=== PATIENT | female | born 1965 | race Caucasian/White ===

== ENCOUNTER 2017-05-24 12:58 | Emergency (ER) | payer BC ==
[~2017-05-24] VITALS: Ht 175.3 cm; Wt 110.8 kg
[~2017-05-24 12:58] MED LIST: DAILY VITE1 EAC1 PO; FENOFIBRATE160 M1 PO; LOSARTAN-HCTZ1 EAC2 PO; LOSARTAN-HCTZ1 EACH PO; LOVENOX40 MG/0.4 SC; METFORMIN HCL500 MG PO
[2017-05-24 14:37] LABS: HEMATOCRIT 36.5 % (36.0-46.0); MCHC 34.8 G/DL (30.0-36.0); MEAN PLAT.VOLUME 10.4 uM^3 (9.5-12.4); PLATELET COUNT 185 K/uL (156-360); RBC DIS.WIDTH-CV 13.2 % (11.8-14.6); RBC DIS.WIDTH-SD 43.4 % (39-53); WHITE BLOOD COUNT 5.7 K/uL (4.1-10.2)
[2017-05-24 14:46] LABS: CHLORIDE 103 mEq/L (99-109); POTASSIUM 3.1 mEq/L (3.7-5.4); SODIUM 138 mEq/L (136-147)
[2017-05-24 14:49] LABS: GLUCOSE 128 mg/dL (70-99)
[2017-05-24 14:50] LABS: ANION GAP 14 MEQ/L (2-14); TOTAL BILIRUBIN 0.4 mg/dL (0.0-1.0)
[2017-05-24 14:52] LABS: ALKALINE PHOSPHATASE 61 IU/L (3-129); GFR ESTIMATE (CALCULATED) 55 mL/min/
[2017-05-24 14:53] LABS: UREA NITROGEN (BUN) 22 mg/dL (9-23)
[2017-05-24 14:54] LABS: DIRECT BILIRUBIN 0.2 mg/dL (0.0-0.3)
[2017-05-24 14:56] LABS: LIPASE 11 U/L (1.0-51.0)
[2017-05-24 17:17] LABS: ADD MIUA? YES; BILIRUBIN NEGATIVE; BLOOD NEGATIVE; COLOR YELLOW ((YELLOW)); GLUCOSE (STRIP) NEGATIVE; KETONES NEGATIVE; LEUKOCYTES NEGATIVE; NITRITE NEGATIVE; PROTEIN (STRIP) 30; UROBILINOGEN 0.2 MG/DL (0.2-1.0)
[2017-05-24 17:23] LABS: BACTERIA 2+ /HPF; EPITHELIAL CELLS RARE /HPF; HYALINE CASTS 20-30 /LPF; MUCUS TRACE /LPF; RED BLOOD CELLS 0-5 /HPF (0-5); UCUL ADDED? YES; WHITE BLOOD CELLS 0-5 /HPF (0-5)
[2017-05-24 17:53] VITALS: BP 113/84
== END 2017-05-24 17:53 | disposition home or self-care (01) ==
LOC: EME 12:58
PROVIDERS: Emergency Medicine
DX: E86.0 Dehydration (principal); R19.7 Diarrhea, unspecified; I10 Essential (primary) hypertension; E78.5 Hyperlipidemia, unspecified; E11.9 Type 2 diabetes mellitus without complications; Z79.84 Long term (current) use of oral hypoglycemic drugs
CPT/HCPCS: 74176; 80048; 80076; 81003; 83690; 85027; 87086; 93005; 99281; 99284; J2405; J7030

== ENCOUNTER 2017-06-10 08:31 | Emergency (ER) | payer BC ==
[~2017-06-10] VITALS: Ht 172.7 cm; Wt 109.2 kg
[2017-06-10 09:15] LABS: ADD MIUA? YES; BILIRUBIN SMALL; BLOOD NEGATIVE; COLOR AMBER ((YELLOW)); GLUCOSE (STRIP) NEGATIVE; KETONES 5; LEUKOCYTES NEGATIVE; NITRITE NEGATIVE; PROTEIN (STRIP) 100; SPECIFIC GRAVITY 1.042 (1.000-1.030)
[2017-06-10 09:20] LABS: BACTERIA 3+ /HPF; CALCIUM OXALATE CRYSTALS 3+ /HPF; EPITHELIAL CELLS 3+ /HPF; GRANULAR CASTS 0-5 /LPF; HYALINE CASTS 0-5 /LPF; MUCUS 2+ /LPF; RED BLOOD CELLS 0-5 /HPF (0-5); WHITE BLOOD CELLS 0-5 /HPF (0-5)
[2017-06-10 09:47] LABS: HEMATOCRIT 33.9 % (36.0-46.0); MCH 30.7 PG (29.0-34.0); MCHC 33.9 G/DL (30.0-36.0); MCV 90.6 FL (83-99); MEAN PLAT.VOLUME 9.6 uM^3 (9.5-12.4); PLATELET COUNT 178 K/uL (156-360); RBC DIS.WIDTH-CV 13.7 % (11.8-14.6); RBC DIS.WIDTH-SD 45.4 % (39-53); RED BLOOD COUNT 3.74 M/uL (3.80-5.20); WHITE BLOOD COUNT 5.7 K/uL (4.1-10.2)
[2017-06-10 10:01] LABS: CHLORIDE 109 mEq/L (99-109); POTASSIUM 3.5 mEq/L (3.7-5.4); SODIUM 141 mEq/L (136-147)
[2017-06-10 10:03] LABS: GLUCOSE 153 mg/dL (70-99)
[2017-06-10 10:05] LABS: ANION GAP 10 MEQ/L (2-14); TOTAL BILIRUBIN 0.6 mg/dL (0.0-1.0)
[2017-06-10 10:07] LABS: ALKALINE PHOSPHATASE 52 IU/L (3-129); GFR ESTIMATE (CALCULATED) > 59 mL/min/
[2017-06-10 10:08] LABS: UREA NITROGEN (BUN) 17 mg/dL (9-23)
[2017-06-10 10:10] LABS: LIPASE 11 U/L (1.0-51.0)
[2017-06-10] MEDS ORDERED: PREDNISONE50 MG PO (10:38)
[2017-06-10 10:45] VITALS: BP 150/70
== END 2017-06-10 10:47 | disposition home or self-care (01) ==
LOC: EME 08:31
PROVIDERS: Nurse Practitioner Family
DX: R22.0 Localized swelling, mass and lump, head (principal); R10.9 Unspecified abdominal pain; N04.9 Nephrotic syndrome with unspecified morphologic changes
CPT/HCPCS: 71020; 80053; 81003; 83690; 83880; 85027; 99281; 99284; J7512

== ENCOUNTER 2017-07-22 10:29 | Inpatient (IN) | payer BC ==
[~2017-07-22] VITALS: Ht 170.2 cm; Wt 111.3 kg
[~2017-07-22 10:29] MED LIST changes: +PREDNISONE50 MG PO
[2017-07-22 11:19] LABS: HEMATOCRIT 28.5 % (36.0-46.0); MCH 28.1 PG (29.0-34.0); MCHC 32.3 G/DL (30.0-36.0); MEAN PLAT.VOLUME 10.7 uM^3 (9.5-12.4); PLATELET COUNT 142 K/uL (156-360); RBC DIS.WIDTH-CV 14.6 % (11.8-14.6); RBC DIS.WIDTH-SD 46.8 % (39-53); RED BLOOD COUNT 3.27 M/uL (3.80-5.20); WHITE BLOOD COUNT 3.3 K/uL (4.1-10.2)
[2017-07-22 11:20] LABS: MCV 87.2 FL (83-99)
[2017-07-22 11:29] LABS: CHLORIDE 103 mEq/L (99-109); POTASSIUM 3.5 mEq/L (3.7-5.4); SODIUM 134 mEq/L (136-147)
[2017-07-22 11:30] LABS: GLUCOSE 131 mg/dL (70-99)
[2017-07-22 11:32] LABS: ANION GAP 14 MEQ/L (2-14)
[2017-07-22 11:34] LABS: GFR ESTIMATE (CALCULATED) 46 mL/min/
[2017-07-22 11:35] LABS: UREA NITROGEN (BUN) 34 mg/dL (9-23)
[2017-07-22 11:57] LABS: EOSINOPHIL (%) 2.1 % (0-5); EOSINOPHIL COUNT 0.1 K/uL (0-0.3); HEMATOLOGY COMMENT 1 SMEAR COMPATIBLE; IMMATURE GRANULOCYTE (%) 0.6 % (0.0-0.7); INSTRUMENT ABS NEUTROPHIL CT 2.5 K/uL; LYMPHOCYTE COUNT 0.5 K/uL (1.0-2.8); MONOCYTE COUNT 0.2 K/uL (0-0.8); NEUTROPHIL (%) 75.7 % (45-76); NEUTROPHIL COUNT 2.5 K/uL (1.8-6.4)
[2017-07-22] MEDS ORDERED: PREDNISONE10 MG PO (13:01)
[2017-07-22] MEDS ORDERED: ESTRACE1 MG PO (13:02)
[2017-07-22 13:41] LABS: ADD MIUA? YES; BILIRUBIN NEGATIVE; BLOOD NEGATIVE; COLOR YELLOW ((YELLOW)); GLUCOSE (STRIP) NEGATIVE; KETONES NEGATIVE; LEUKOCYTES NEGATIVE; NITRITE NEGATIVE; PROTEIN (STRIP) NEGATIVE; SPECIFIC GRAVITY 1.008 (1.000-1.030); UROBILINOGEN 0.2 MG/DL (0.2-1.0)
[2017-07-22 13:46] LABS: BACTERIA 3+ /HPF; EPITHELIAL CELLS 1+ /HPF; HYALINE CASTS 0-5 /LPF; MUCUS TRACE /LPF; RED BLOOD CELLS 0-5 /HPF (0-5); UCUL ADDED? YES; WHITE BLOOD CELLS 0-5 /HPF (0-5)
[2017-07-22 15:24] VITALS: BP 111/56
[2017-07-22 15:48] LABS: C-REACTIVE PROTEIN 144.4 MG/L (0-10)
[2017-07-22 15:59] LABS: ERTH.SED.RATE 64 MM/HR (0-30)
[2017-07-22 17:25] VITALS: BP 111/56
[2017-07-22 19:50] VITALS: BP 111/54
[2017-07-22 21:39] LABS: POINT-OF-CARE METER ID UU14174216
[2017-07-23] VITALS: BP 119/57
[2017-07-23 03:41] VITALS: BP 108/57
[2017-07-23 05:42] LABS: HEMATOCRIT 25.3 % (36.0-46.0); MCH 28.2 PG (29.0-34.0); MCHC 31.6 G/DL (30.0-36.0); MCV 89.1 FL (83-99); MEAN PLAT.VOLUME 10.7 uM^3 (9.5-12.4); PLATELET COUNT 137 K/uL (156-360); RBC DIS.WIDTH-CV 14.9 % (11.8-14.6); RBC DIS.WIDTH-SD 49.1 % (39-53); RED BLOOD COUNT 2.84 M/uL (3.80-5.20); WHITE BLOOD COUNT 2.9 K/uL (4.1-10.2)
[2017-07-23 06:14] LABS: ANION GAP 10 MEQ/L (2-14); CHLORIDE 110 MEQ/L (99-109); GLUCOSE 126 mg/dL (70-99); SAMPLE HEMOLYSIS CHECK 0; SAMPLE ICTERIC CHECK 0; SAMPLE LIPEMIA CHECK 0; UREA NITROGEN (BUN) 22 mg/dL (9-23)
[2017-07-23 06:19] LABS: GFR ESTIMATE (CALCULATED) > 59 mL/min/; SODIUM 141 MEQ/L (136-147)
[2017-07-23 07:30] VITALS: BP 108/57
[2017-07-23 11:54] VITALS: BP 106/58
[2017-07-23 16:00] VITALS: BP 100/57
[2017-07-23 19:38] VITALS: BP 121/65
[2017-07-23 21:29] LABS: POINT-OF-CARE METER ID UU14162508
[2017-07-24] VITALS (7 sets, daily range): BP systolic 110–131; BP diastolic 58–69
[2017-07-24 06:55] LABS: HEMATOCRIT 25.1 % (36.0-46.0); MCH 29.2 PG (29.0-34.0); MCHC 32.3 G/DL (30.0-36.0); MCV 90.6 FL (83-99); MEAN PLAT.VOLUME 11.2 uM^3 (9.5-12.4); PLATELET COUNT 140 K/uL (156-360); RBC DIS.WIDTH-CV 14.9 % (11.8-14.6); RED BLOOD COUNT 2.77 M/uL (3.80-5.20); WHITE BLOOD COUNT 2.7 K/uL (4.1-10.2)
[2017-07-24 07:19] LABS: ANION GAP 10 MEQ/L (2-14); CHLORIDE 110 MEQ/L (99-109); GFR ESTIMATE (CALCULATED) > 59 mL/min/; GLUCOSE 123 mg/dL (70-99); MAGNESIUM 1.7 mg/dl (1.3-2.7); POTASSIUM 4.1 MEQ/L (3.7-5.4); SAMPLE HEMOLYSIS CHECK 0; SAMPLE ICTERIC CHECK 0; SAMPLE LIPEMIA CHECK 0; SODIUM 142 MEQ/L (136-147); UREA NITROGEN (BUN) 20 mg/dL (9-23)
[2017-07-25 07:45] VITALS: BP 120/62
[2017-07-25 10:27] LABS: HEMATOCRIT 26.8 % (36.0-46.0); MCH 28.1 PG (29.0-34.0); MCHC 30.6 G/DL (30.0-36.0); MCV 91.8 FL (83-99); MEAN PLAT.VOLUME 11.6 uM^3 (9.5-12.4); PLATELET COUNT 146 K/uL (156-360); RBC DIS.WIDTH-CV 15.1 % (11.8-14.6); RED BLOOD COUNT 2.92 M/uL (3.80-5.20); WHITE BLOOD COUNT 2.5 K/uL (4.1-10.2)
[2017-07-25 10:39] LABS: ALKALINE PHOSPHATASE 46 IU/L (3-129); ANION GAP 9 MEQ/L (2-14); CHLORIDE 112 MEQ/L (99-109); GFR ESTIMATE (CALCULATED) > 59 mL/min/; GLUCOSE 117 mg/dL (70-99); POTASSIUM 3.9 MEQ/L (3.7-5.4); SODIUM 143 MEQ/L (136-147); UREA NITROGEN (BUN) 19 mg/dL (9-23)
[2017-07-25 10:41] LABS: TOTAL BILIRUBIN 0.4 MG/DL (0.0-1.0)
[2017-07-25 11:05] LABS: HEMATOCRIT 25.1 % (36.0-46.0); MCHC 31.9 G/DL (30.0-36.0); MCV 90.9 FL (83-99); MEAN PLAT.VOLUME 10.9 uM^3 (9.5-12.4); PLATELET COUNT 147 K/uL (156-360); RBC DIS.WIDTH-CV 15.2 % (11.8-14.6); RBC DIS.WIDTH-SD 50.5 % (39-53); RED BLOOD COUNT 2.76 M/uL (3.80-5.20); WHITE BLOOD COUNT 2.7 K/uL (4.1-10.2)
[2017-07-25 11:28] LABS: EOSINOPHIL (%) 0.4 % (0-5); IMMATURE GRANULOCYTE (%) 1.9 % (0.0-0.7); IMMATURE GRANULOCYTE COUNT 0.1 K/uL; INSTRUMENT ABS NEUTROPHIL CT 2.1 K/uL; LYMPHOCYTE COUNT 0.3 K/uL (1.0-2.8); MONOCYTE (%) 8.3 % (3-12); MONOCYTE COUNT 0.2 K/uL (0-0.8); NEUTROPHIL (%) 77.3 % (45-76); NEUTROPHIL COUNT 2.1 K/uL (1.8-6.4)
[2017-07-25 11:52] LABS: ALKALINE PHOSPHATASE 42 IU/L (3-129); DIRECT BILIRUBIN 0.1 mg/dL (0.0-0.3); GLOBULINS 3.2 G/DL (2.3-3.5); TOTAL BILIRUBIN 0.4 MG/DL (0.0-1.0)
[2017-07-25 12:17] LABS: LACTATE DEHYDROGENASE 271 IU/L (20-246); URIC ACID 6.9 mg/dL (3.1-9.2)
[2017-07-25 12:33] LABS: ANTI-CYCLC CITRULLINATED PEPT+ <16 Units (<20)
[2017-07-25 15:44] VITALS: BP 131/66
[2017-07-25 16:05] LABS: POINT-OF-CARE METER ID UU14314084
[2017-07-25 16:38] LABS: URINE TOTAL PROTEIN 6 MG/DL (0-10)
[2017-07-25 21:39] LABS: POINT-OF-CARE METER ID UU14314084
[2017-07-26 00:13] VITALS: BP 137/64
[2017-07-26 06:45] LABS: POINT-OF-CARE METER ID UU14208750
[2017-07-26 07:14] LABS: HEMATOCRIT 24.5 % (36.0-46.0); MCH 28.7 PG (29.0-34.0); MCHC 31.8 G/DL (30.0-36.0); MCV 90.1 FL (83-99); MEAN PLAT.VOLUME 11.7 uM^3 (9.5-12.4); NRBC (%) 1.7 /100 WBC (0-0); PLATELET COUNT 155 K/uL (156-360); RBC DIS.WIDTH-CV 15.3 % (11.8-14.6); RBC DIS.WIDTH-SD 50.1 % (39-53); RED BLOOD COUNT 2.72 M/uL (3.80-5.20); WHITE BLOOD COUNT 2.9 K/uL (4.1-10.2)
[2017-07-26 07:20] VITALS: BP 122/71
[2017-07-26 07:32] LABS: ALKALINE PHOSPHATASE 43 IU/L (3-129); ANION GAP 10 MEQ/L (2-14); CHLORIDE 111 MEQ/L (99-109); GFR ESTIMATE (CALCULATED) > 59 mL/min/; GLUCOSE 127 mg/dL (70-99); POTASSIUM 4.3 MEQ/L (3.7-5.4); SAMPLE HEMOLYSIS CHECK 0; SAMPLE ICTERIC CHECK 0; SAMPLE LIPEMIA CHECK 0; SODIUM 142 MEQ/L (136-147); TOTAL BILIRUBIN 0.4 MG/DL (0.0-1.0); UREA NITROGEN (BUN) 16 mg/dL (9-23)
[2017-07-26 07:44] LABS: ABS NEUTROPHIL COUNT 2.1; BAND NEUTROPHILS 3.7 % (0-8.0); BASOPHILS 0.9 %; EOSINOPHIL ABS CT 0; INSTRUMENT ABS NEUTROPHIL CT 1.9 K/uL; LYMPHOCYTES 15.6 % (15.0-45.0); MYELOCYTES 6.4 %; NUCLEATED RBC'S 0.9; PLAT.SUFFICIENCY DECREASED; SEG.NEUTROPHILS 69.7 % (46.0-76.0)
[2017-07-26 11:54] LABS: POINT-OF-CARE METER ID UU14208750; POINT-OF-CARE USER ID PUTDRM
[2017-07-26] MEDS ORDERED: PREDNISONE10 MG PO ×2 (15:37→15:47)
[2017-07-26] MEDS ORDERED: CALCIUM 500 MG1 EACH PO (15:46)
[2017-07-26 16:12] LABS: POINT-OF-CARE METER ID UU14314084
[2017-07-28 11:12] LABS: ALBUMIN 2.68 G/DL (3.6-4.9); ALBUMIN PERCENT 44.6 % (49.3-67.1); ALPHA-1 GLOBULIN 0.46 G/DL (0.15-0.40); ALPHA-1 PERCENT 7.7 % (2.1-5.5); ALPHA-2 GLOBULIN 0.76 G/DL (0.45-0.85); ALPHA-2 PERCENT 12.6 % (6.2-11.6); BETA PERCENT 11.6 % (8.9-15.8); GAMMA PERCENT 23.5 % (8.6-18.6)
== END 2017-07-26 16:49 | disposition home or self-care (01) | DRG 951 ==
LOC: EME 10:29 → EDOF 12:45 → 4EAST 12:45 → ENRESERV 12:45 → 4EAST 15:09 → ENRESERV 07-23 14:21 → 2EAST 07-23 15:50
PROVIDERS: Emergency Medicine; Hospitalist; Internal Medicine; Internal Medicine Medical Oncology
DX: Z03.89 Encounter for observation for other suspected diseases and conditions ruled out (principal); D61.818 Other pancytopenia; E87.2 Acidosis; I95.9 Hypotension, unspecified; R50.9 Fever, unspecified; R59.0 Localized enlarged lymph nodes; R21 Rash and other nonspecific skin eruption; I10 Essential (primary) hypertension; E78.2 Mixed hyperlipidemia; E11.9 Type 2 diabetes mellitus without complications; K76.9 Liver disease, unspecified; E66.9 Obesity, unspecified; Z68.38 Body mass index [BMI] 38.0-38.9, adult; Z79.890 Hormone replacement therapy; Z79.52 Long term (current) use of systemic steroids; Z92.21 Personal history of antineoplastic chemotherapy; Z87.59 Personal history of other complications of pregnancy, childbirth and the puerperium; Z90.710 Acquired absence of both cervix and uterus
CPT/HCPCS: 36415; 70491; 71010; 71260; 80048; 80053; 81003; 82085 90; 82248; 82550; 82948; 83036; 83605; 83615; 83735; 84165; 84166; 84550; 84702 90; 85025; 85027; 85651; 86038; 86140; 86200 90; 86215 90; 86235; 86430; 87040; 87086; 99281; 99285; J0295; J1650; J1815; J2543; J7030; J7050; J7512

== ENCOUNTER 2017-08-10 19:59 | Inpatient (IN) | payer BC ==
[~2017-08-10] VITALS: Ht 170.2 cm; Wt 105.4 kg
[~2017-08-10 19:59] MED LIST changes: +CALCIUM 500 MG1 EACH PO; +ESTRACE1 MG PO; +PREDNISONE10 MG PO
[2017-08-10 21:08] LABS: ADD MIUA? YES; BILIRUBIN NEGATIVE; BLOOD NEGATIVE; COLOR YELLOW ((YELLOW)); GLUCOSE (STRIP) NEGATIVE; KETONES NEGATIVE; LEUKOCYTES NEGATIVE; NITRITE NEGATIVE; PROTEIN (STRIP) NEGATIVE; SPECIFIC GRAVITY 1.014 (1.000-1.030); UROBILINOGEN 0.2 MG/DL (0.2-1.0)
[2017-08-10 21:16] LABS: BACTERIA RARE /HPF; EPITHELIAL CELLS RARE /HPF; MUCUS TRACE /LPF; RED BLOOD CELLS 0-5 /HPF (0-5); UCUL ADDED? NO; WHITE BLOOD CELLS 0-5 /HPF (0-5)
[2017-08-10] MEDS ORDERED: PREDNISONE10 MG PO (23:04)
[2017-08-10] MEDS ORDERED: MYCOSTATIN 100,60 ML PO (23:14)
[2017-08-10] MEDS ORDERED: METFORMIN HCL500 M1 PO (23:15)
[2017-08-11 01:19] VITALS: BP 119/58
[2017-08-11 08:10] VITALS: BP 111/55
[2017-08-11 09:25] LABS: POINT-OF-CARE METER ID UU13113774
[2017-08-11 09:50] LABS: INTERNAL CONTROL VALID? YES
[2017-08-11 10:40] VITALS: BP 115/61
[2017-08-11 11:21] LABS: POINT-OF-CARE METER ID UU13113774
[2017-08-11 16:25] LABS: POINT-OF-CARE METER ID UU13113774
[2017-08-11 16:26] VITALS: BP 114/70
[2017-08-11 17:03] LABS: ANION GAP 8 MEQ/L (2-14); CHLORIDE 107 MEQ/L (99-109); POTASSIUM 3.7 MEQ/L (3.7-5.4); SAMPLE HEMOLYSIS CHECK 0; SAMPLE ICTERIC CHECK 0; SAMPLE LIPEMIA CHECK 0; SODIUM 135 MEQ/L (136-147); TOTAL BILIRUBIN 0.4 MG/DL (0.0-1.0)
[2017-08-11 17:09] LABS: ALKALINE PHOSPHATASE 32 IU/L (3-129); GFR ESTIMATE (CALCULATED) > 59 mL/min/; GLUCOSE 161 mg/dL (70-99); UREA NITROGEN (BUN) 13 mg/dL (9-23)
[2017-08-11 17:11] LABS: HEMATOCRIT 24.1 % (36.0-46.0); MCH 28.5 PG (29.0-34.0); MCHC 31.5 G/DL (30.0-36.0); MCV 90.3 FL (83-99); RBC DIS.WIDTH-CV 17.6 % (11.8-14.6); RBC DIS.WIDTH-SD 57.8 % (39-53); RED BLOOD COUNT 2.67 M/uL (3.80-5.20); WHITE BLOOD COUNT 0.9 K/uL (4.1-10.2)
[2017-08-11 17:29] LABS: ABS NEUTROPHIL COUNT 0.6; ANISOCYTOSIS 2+; ATYPICAL LYMPHOCYTE 0.9 %; BAND NEUTROPHILS 20.4 % (0-8.0); BASOPHILS 0.4 %; EOSINOPHIL ABS CT 0; EOSINOPHILS 0.4 % (0-5.0); INSTRUMENT ABS NEUTROPHIL CT 0.6 K/uL; LYMPHOCYTES 17.7 % (15.0-45.0); MACROCYTES 1+; MEAN PLAT.VOLUME 12.5 uM^3 (9.5-12.4); METAMYELOCYTES 1.8 %; MICROCYTOSIS 1+; PLAT.SUFFICIENCY DECREASED; PLATELET COUNT 63 K/uL (156-360); TEAR DROP CELLS 1+
[2017-08-11 18:46] LABS: SEG.NEUTROPHILS 47.8 % (46.0-76.0)
[2017-08-11 19:04] VITALS: BP 113/61
[2017-08-11 19:53] LABS: HEMATOCRIT 23.7 % (36.0-46.0); MCH 28.1 PG (29.0-34.0); MCHC 30.8 G/DL (30.0-36.0); MCV 91.2 FL (83-99); MEAN PLAT.VOLUME 12.1 uM^3 (9.5-12.4); PLATELET COUNT 59 K/uL (156-360); RBC DIS.WIDTH-CV 17.8 % (11.8-14.6); RBC DIS.WIDTH-SD 58.4 % (39-53)
[2017-08-11 19:55] LABS: WHITE BLOOD COUNT 0.9 K/uL (4.1-10.2)
[2017-08-11 21:17] LABS: POINT-OF-CARE METER ID UU13113774
[2017-08-11 22:48] VITALS: BP 110/61
[2017-08-12 03:00] VITALS: BP 112/64
[2017-08-12 06:18] LABS: POINT-OF-CARE METER ID UU13113725
[2017-08-12 06:39] LABS: HEMATOCRIT 24.4 % (36.0-46.0); MCH 28.9 PG (29.0-34.0); MCHC 31.1 G/DL (30.0-36.0); MCV 92.8 FL (83-99); MEAN PLAT.VOLUME 11.8 uM^3 (9.5-12.4); PLATELET COUNT 62 K/uL (156-360); RBC DIS.WIDTH-CV 17.9 % (11.8-14.6); RBC DIS.WIDTH-SD 59.9 % (39-53); RED BLOOD COUNT 2.63 M/uL (3.80-5.20)
[2017-08-12 07:03] LABS: ANION GAP 8 MEQ/L (2-14); CHLORIDE 110 MEQ/L (99-109); GFR ESTIMATE (CALCULATED) > 59 mL/min/; GLUCOSE 153 mg/dL (70-99); POTASSIUM 3.9 MEQ/L (3.7-5.4); SAMPLE HEMOLYSIS CHECK 0; SAMPLE ICTERIC CHECK 0; SAMPLE LIPEMIA CHECK 0; SODIUM 141 MEQ/L (136-147); UREA NITROGEN (BUN) 15 mg/dL (9-23)
[2017-08-12 07:07] LABS: EOSINOPHIL (%) 0 % (0-5); IMMATURE GRANULOCYTE (%) 4.2 % (0.0-0.7); INSTRUMENT ABS NEUTROPHIL CT 0.7 K/uL; LYMPHOCYTE COUNT 0.1 K/uL (1.0-2.8); MONOCYTE (%) 12.6 % (3-12); MONOCYTE COUNT 0.1 K/uL (0-0.8); NEUTROPHIL (%) 71.6 % (45-76); NEUTROPHIL COUNT 0.7 K/uL (1.8-6.4)
[2017-08-12 07:25] VITALS: BP 132/76
[2017-08-12 10:57] LABS: POINT-OF-CARE METER ID UU13113725
[2017-08-12 11:15] VITALS: BP 112/54
[2017-08-12 16:16] VITALS: BP 114/60
[2017-08-12 16:18] LABS: POINT-OF-CARE METER ID UU13113774
[2017-08-12 17:49] LABS: HEMATOCRIT 23.6 % (36.0-46.0); MCH 28.2 PG (29.0-34.0); MCHC 30.9 G/DL (30.0-36.0); MCV 91.1 FL (83-99); MEAN PLAT.VOLUME 12.3 uM^3 (9.5-12.4); PLATELET COUNT 69 K/uL (156-360); RBC DIS.WIDTH-CV 17.9 % (11.8-14.6); RBC DIS.WIDTH-SD 58.5 % (39-53); RED BLOOD COUNT 2.59 M/uL (3.80-5.20)
[2017-08-12 17:52] LABS: WHITE BLOOD COUNT 0.8 K/uL (4.1-10.2)
[2017-08-12 18:27] LABS: ABS NEUTROPHIL COUNT 0.6; ANISOCYTOSIS 2+; ATYPICAL LYMPHOCYTE 0.9 %; EOSINOPHIL ABS CT 0; GIANT PLATELETS 1+; HYPOCHROMASIA 2+; INSTRUMENT ABS NEUTROPHIL CT 0.5 K/uL; MACROCYTES 1+; MICROCYTOSIS 1+; NUCLEATED RBC'S 0.9; PLAT.SUFFICIENCY DECREASED; SPHEROCYTES 1+; TEAR DROP CELLS 1+
[2017-08-12 18:28] LABS: BAND NEUTROPHILS 48.7 % (0-8.0); SEG.NEUTROPHILS 21.2 % (46.0-76.0)
[2017-08-12 19:32] VITALS: BP 97/53
[2017-08-12 20:57] LABS: POINT-OF-CARE METER ID UU13113725
[2017-08-12 23:39] VITALS: BP 125/58
[2017-08-13 04:33] LABS: POINT-OF-CARE METER ID UU13113725
[2017-08-13 06:48] LABS: POINT-OF-CARE METER ID UU13113774
[2017-08-13 07:25] VITALS: BP 128/62
[2017-08-13 08:31] LABS: HEMATOCRIT 25.8 % (36.0-46.0); MCH 28.8 PG (29.0-34.0); MCV 92.8 FL (83-99); NRBC (%) 1.8 /100 WBC (0-0); PLATELET COUNT 86 K/uL (156-360); RBC DIS.WIDTH-CV 18.1 % (11.8-14.6); RBC DIS.WIDTH-SD 60.4 % (39-53); RED BLOOD COUNT 2.78 M/uL (3.80-5.20)
[2017-08-13 08:32] LABS: WHITE BLOOD COUNT 1.1 K/uL (4.1-10.2)
[2017-08-13 09:02] LABS: ANION GAP 11 MEQ/L (2-14); CHLORIDE 107 MEQ/L (99-109); GFR ESTIMATE (CALCULATED) > 59 mL/min/; POTASSIUM 3.5 MEQ/L (3.7-5.4); SAMPLE HEMOLYSIS CHECK 0; SAMPLE ICTERIC CHECK 0; SAMPLE LIPEMIA CHECK 0; SODIUM 139 MEQ/L (136-147); UREA NITROGEN (BUN) 16 mg/dL (9-23)
[2017-08-13 09:09] LABS: GLUCOSE 103 mg/dL (70-99)
[2017-08-13 10:20] LABS: POINT-OF-CARE METER ID UU13113774
[2017-08-13 11:08] VITALS: BP 107/57
== END 2017-08-13 14:44 | disposition short-term general hospital (02) | DRG 808 ==
LOC: EME 19:59 → ENRESERV 23:53 → 5EAST 23:53 → EDOF 23:53 → ENRESERV 08-11 00:06 → 5EAST 08-11 01:17
PROVIDERS: Emergency Medicine; Hospitalist; Internal Medicine; Internal Medicine Medical Oncology
DX: D61.818 Other pancytopenia (principal); R50.81 Fever presenting with conditions classified elsewhere; D86.9 Sarcoidosis, unspecified; J18.9 Pneumonia, unspecified organism; M06.1 Adult-onset Still's disease; E87.2 Acidosis; E11.9 Type 2 diabetes mellitus without complications; E78.5 Hyperlipidemia, unspecified; I10 Essential (primary) hypertension; Z92.21 Personal history of antineoplastic chemotherapy; Z87.59 Personal history of other complications of pregnancy, childbirth and the puerperium
CPT/HCPCS: 36415; 71020; 80048; 80053; 81003; 82728; 82948; 83036; 83735; 85025; 85025 91; 85027; 85610; 85651; 85730; 86140; 87040; 87070; 87205; 87449; 99202; 99281; 99285; J0456; J0692; J1815; J2543; J2930; J3370; J7030; J7050; J7120; J7512

== ENCOUNTER 2017-09-01 18:06 | Inpatient (IN) | payer BC ==
[~2017-09-01] VITALS: Ht 170.2 cm; Wt 111.3 kg
[~2017-09-01 18:06] MED LIST changes: -ATIVAN0.5 MG PO; -MAGIC MOUTHWASH PO; -OXYCODONE HCL5 MG PO; -ZOFRAN ODT4 MG PO
[2017-09-01 18:40] LABS: ADD MIUA? YES; BILIRUBIN NEGATIVE; BLOOD NEGATIVE; COLOR AMBER ((YELLOW)); GLUCOSE (STRIP) NEGATIVE; KETONES NEGATIVE; LEUKOCYTES NEGATIVE; NITRITE NEGATIVE; PROTEIN (STRIP) 30
[2017-09-01 18:45] LABS: BACTERIA RARE /HPF; EPITHELIAL CELLS RARE /HPF; GRANULAR CASTS 0-5 /LPF; MUCUS TRACE /LPF; RED BLOOD CELLS 0-5 /HPF (0-5); UCUL ADDED? NO; WHITE BLOOD CELLS 0-5 /HPF (0-5)
[2017-09-01] MEDS ORDERED: ATIVAN0.5 MG PO (20:18)
[2017-09-01] MEDS ORDERED: ZOFRAN ODT4 MG PO (20:19)
[2017-09-01] MEDS ORDERED: OXYCODONE HCL5 MG PO (20:19)
[2017-09-01] MEDS ORDERED: MAGIC MOUTHWASH PO (20:19)
[2017-09-01 21:23] LABS: INTER. NORMALIZED RATIO 1.6; PROTHROMBIN TIME 18.4 SEC (10.2-12.9)
[2017-09-01 21:24] LABS: CHLORIDE 108 mEq/L (99-109); HEMATOCRIT 22.9 % (36.0-46.0); MCH 29.3 PG (29.0-34.0); MCHC 34.5 G/DL (30.0-36.0); MCV 84.8 FL (83-99); MEAN PLAT.VOLUME 12.1 uM^3 (9.5-12.4); PLATELET COUNT 59 K/uL (156-360); POTASSIUM 3.4 mEq/L (3.7-5.4); RBC DIS.WIDTH-SD 50.4 % (39-53); SODIUM 131 mEq/L (136-147)
[2017-09-01 21:25] LABS: MAGNESIUM 1.5 mg/dL (1.3-2.7); WHITE BLOOD COUNT 1.8 K/uL (4.1-10.2)
[2017-09-01 21:27] LABS: GLUCOSE 128 mg/dL (70-99)
[2017-09-01 21:28] LABS: ANION GAP 6 MEQ/L (2-14); TOTAL BILIRUBIN 1.4 mg/dL (0.0-1.0)
[2017-09-01 21:30] LABS: ALKALINE PHOSPHATASE 47 IU/L (3-129); GFR ESTIMATE (CALCULATED) > 59 mL/min/
[2017-09-01 21:31] LABS: UREA NITROGEN (BUN) 25 mg/dL (9-23)
[2017-09-01 22:10] LABS: ABS NEUTROPHIL COUNT 1.7; ANISOCYTOSIS 1+; ATYPICAL LYMPHOCYTE 0.9 %; BAND NEUTROPHILS 17.7 % (0-8.0); EOSINOPHIL ABS CT 0; GIANT PLATELETS 1+; HYPOCHROMASIA 1+; INSTRUMENT ABS NEUTROPHIL CT 1.7 K/uL; LYMPHOCYTES 1.8 % (15.0-45.0); MICROCYTOSIS 1+; PLAT.SUFFICIENCY VERY DECREASED
[2017-09-01 23:15] VITALS: BP 127/69
[2017-09-01 23:25] VITALS: BP 127/69
[2017-09-02] VITALS (11 sets, daily range): BP systolic 103–164; BP diastolic 64–86
[2017-09-02 00:52] LABS: POINT-OF-CARE METER ID UU13113803
[2017-09-02 01:06] LABS: HEMATOCRIT 25.2 % (36.0-46.0); MCH 28.9 PG (29.0-34.0); MCHC 33.3 G/DL (30.0-36.0); MCV 86.6 FL (83-99); MEAN PLAT.VOLUME 12.5 uM^3 (9.5-12.4); PLATELET COUNT 52 K/uL (156-360); RBC DIS.WIDTH-CV 17.4 % (11.8-14.6); RBC DIS.WIDTH-SD 52.1 % (39-53); RED BLOOD COUNT 2.91 M/uL (3.80-5.20); WHITE BLOOD COUNT 2.4 K/uL (4.1-10.2)
[2017-09-02 01:11] LABS: METH RESISTANT S AUREUS PCR NEGATIVE (NEGATIVE)
[2017-09-02 01:13] LABS: PROBE CHECK PASS; SPECIMEN PROCESSING CONTROL PASS
[2017-09-02 01:18] LABS: CHLORIDE 110 mEq/L (99-109); POTASSIUM 3.6 mEq/L (3.7-5.4); SODIUM 134 mEq/L (136-147)
[2017-09-02 01:21] LABS: GLUCOSE 143 mg/dL (70-99)
[2017-09-02 01:22] LABS: ANION GAP 9 MEQ/L (2-14)
[2017-09-02 01:23] LABS: TOTAL BILIRUBIN 1.4 mg/dL (0.0-1.0)
[2017-09-02 01:24] LABS: ALKALINE PHOSPHATASE 47 IU/L (3-129); GFR ESTIMATE (CALCULATED) > 59 mL/min/
[2017-09-02 01:25] LABS: ERTH.SED.RATE 6 MM/HR (0-30); UREA NITROGEN (BUN) 21 mg/dL (9-23)
[2017-09-02 01:53] LABS: EOSINOPHIL (%) 0 % (0-5); IMMATURE GRANULOCYTE (%) 0.4 % (0.0-0.7); INSTRUMENT ABS NEUTROPHIL CT 2.2 K/uL; LYMPHOCYTE COUNT 0.1 K/uL (1.0-2.8); MONOCYTE (%) 3.3 % (3-12); MONOCYTE COUNT 0.1 K/uL (0-0.8); NEUTROPHIL (%) 91.8 % (45-76); NEUTROPHIL COUNT 2.2 K/uL (1.8-6.4); PLAT.SUFFICIENCY DECREASED
[2017-09-02 06:37] LABS: POINT-OF-CARE METER ID UU13113731
[2017-09-02 07:59] LABS: URIC ACID 5.5 mg/dL (3.1-9.2)
[2017-09-02 11:52] LABS: POINT-OF-CARE METER ID UU13113731
[2017-09-02 17:04] LABS: POINT-OF-CARE METER ID UU13113731
[2017-09-02 21:53] LABS: POINT-OF-CARE METER ID UU14174217
[2017-09-03] VITALS: BP 112/66
[2017-09-03 04:00] VITALS: BP 92/62
[2017-09-03 06:53] LABS: POINT-OF-CARE METER ID UU14314083
[2017-09-03 08:00] VITALS: BP 99/55
[2017-09-03 08:54] LABS: HEMATOCRIT 23.1 % (36.0-46.0); MCH 28.1 PG (29.0-34.0); MCHC 32.5 G/DL (30.0-36.0); MCV 86.5 FL (83-99); RBC DIS.WIDTH-CV 17.4 % (11.8-14.6); RBC DIS.WIDTH-SD 53.1 % (39-53); RED BLOOD COUNT 2.67 M/uL (3.80-5.20); WHITE BLOOD COUNT 2.2 K/uL (4.1-10.2)
[2017-09-03 09:22] LABS: ABS NEUTROPHIL COUNT 2.2; BAND NEUTROPHILS 1.8 % (0-8.0); EOSINOPHIL ABS CT 0; INSTRUMENT ABS NEUTROPHIL CT 2.2 K/uL; MEAN PLAT.VOLUME 13.3 uM^3 (9.5-12.4); NUCLEATED RBC'S 2.7; PLAT.SUFFICIENCY DECREASED; PLATELET COUNT 39 K/uL (156-360); SMUDGE CELLS 14.2
[2017-09-03 09:24] LABS: SEG.NEUTROPHILS 97.3 % (46.0-76.0)
[2017-09-03 09:43] LABS: ALKALINE PHOSPHATASE 56 IU/L (3-129); ANION GAP 12 MEQ/L (2-14); CHLORIDE 107 MEQ/L (99-109); GFR ESTIMATE (CALCULATED) > 59 mL/min/; GLUCOSE 182 mg/dL (70-99); MAGNESIUM 1.6 mg/dl (1.3-2.7); SAMPLE HEMOLYSIS CHECK 0; SAMPLE ICTERIC CHECK 0; SAMPLE LIPEMIA CHECK 0; SODIUM 133 MEQ/L (136-147); TOTAL BILIRUBIN 1.4 MG/DL (0.0-1.0); URIC ACID 7.5 mg/dL (3.1-9.2)
[2017-09-03 10:04] LABS: POTASSIUM 4.5 MEQ/L (3.7-5.4); UREA NITROGEN (BUN) 32 mg/dL (9-23)
[2017-09-03 12:00] VITALS: BP 107/74
[2017-09-03 12:10] LABS: TYPE OF FLUID PLEURAL
[2017-09-03 12:55] LABS: BODY FLUID LDH 139 IU/L; BODY FLUID PROTEIN 3.1 G/DL
[2017-09-03 12:59] LABS: BODY FLUID EOSINOPHILS 0 % (0-25); BODY FLUID RBC'S < 1000 /MM^3 (0-100); BODY FLUID WBC'S 52 /MM^3 (0-500); MONONUCLEAR WBC'S 74 %; POLYNUCLEAR WBC'S 27 % (0-25)
[2017-09-03 15:40] LABS: BASE EXCESS -7.5 mEq/L (-3 to +3); BICARBONATE 14.9 mEq/L (22-26); CARBOXY HGB 2.2 % (0-5); COMMENTS - BLOOD GASES C+; DEVICE ROOM AIR; FI02 21 %; METHEMOGLOBIN 1.7 % (0-1.5); PCO2 20 mm Hg (35-45); PO2 61 mm Hg (80-100); SITE RR; TOTAL RESP RATE 32 resp/min; pH 7.48 (7.35-7.45)
[2017-09-03 16:00] VITALS: BP 129/73
[2017-09-03 16:34] LABS: POINT-OF-CARE METER ID UU14314082
[2017-09-03 17:01] LABS: ANION GAP 12 MEQ/L (2-14); CHLORIDE 107 MEQ/L (99-109); POTASSIUM 4.6 MEQ/L (3.7-5.4); SAMPLE HEMOLYSIS CHECK 0; SAMPLE ICTERIC CHECK 0; SAMPLE LIPEMIA CHECK 0; SODIUM 133 MEQ/L (136-147)
[2017-09-03 17:02] LABS: GFR ESTIMATE (CALCULATED) > 59 mL/min/; GLUCOSE 170 mg/dL (70-99); UREA NITROGEN (BUN) 35 mg/dL (9-23)
[2017-09-03 19:42] VITALS: BP 128/65
[2017-09-03 22:07] LABS: POINT-OF-CARE METER ID UU13113725
[2017-09-04] VITALS (21 sets, daily range): BP systolic 18–1126; BP diastolic 55–76
[2017-09-04 06:01] LABS: POINT-OF-CARE METER ID UU13113774
[2017-09-04 06:27] LABS: HEMATOCRIT 21.2 % (36.0-46.0); MCH 28.8 PG (29.0-34.0); MCHC 32.1 G/DL (30.0-36.0); MCV 89.8 FL (83-99); RBC DIS.WIDTH-CV 17.6 % (11.8-14.6); RBC DIS.WIDTH-SD 55.8 % (39-53); RED BLOOD COUNT 2.36 M/uL (3.80-5.20); WHITE BLOOD COUNT 2.2 K/uL (4.1-10.2)
[2017-09-04 06:43] LABS: IMM.PLATELET FRACTION 11.5 (1-7); MEAN PLAT.VOLUME 14.3 uM^3 (9.5-12.4); PLAT.SUFFICIENCY VERY DECREASED; PLATELET COUNT 27 K/uL (156-360)
[2017-09-04 07:03] LABS: ANION GAP 8 MEQ/L (2-14); CHLORIDE 110 MEQ/L (99-109); GFR ESTIMATE (CALCULATED) > 59 mL/min/; GLUCOSE 192 mg/dL (70-99); POTASSIUM 4.6 MEQ/L (3.7-5.4); SAMPLE HEMOLYSIS CHECK 0; SAMPLE ICTERIC CHECK 0; SAMPLE LIPEMIA CHECK 0; SODIUM 133 MEQ/L (136-147); UREA NITROGEN (BUN) 34 mg/dL (9-23); URIC ACID 7.2 mg/dL (3.1-9.2)
[2017-09-04 07:07] LABS: LACTATE DEHYDROGENASE 562 IU/L (20-246); MAGNESIUM 1.9 mg/dl (1.3-2.7)
[2017-09-04 11:25] LABS: POINT-OF-CARE METER ID UU13113774
[2017-09-04 16:02] LABS: ALKALINE PHOSPHATASE 58 IU/L (3-129); ANION GAP 8 MEQ/L (2-14); CHLORIDE 110 MEQ/L (99-109); GFR ESTIMATE (CALCULATED) > 59 mL/min/; GLUCOSE 217 mg/dL (70-99); MAGNESIUM 1.9 mg/dl (1.3-2.7); POTASSIUM 4.1 MEQ/L (3.7-5.4); SAMPLE HEMOLYSIS CHECK 0; SAMPLE ICTERIC CHECK 0; SAMPLE LIPEMIA CHECK 0; SODIUM 134 MEQ/L (136-147); TOTAL BILIRUBIN 1.2 MG/DL (0.0-1.0); UREA NITROGEN (BUN) 33 mg/dL (9-23)
[2017-09-04 16:23] LABS: POINT-OF-CARE METER ID UU13113774
[2017-09-04 21:55] LABS: POINT-OF-CARE METER ID UU13113774
[2017-09-04 22:36] LABS: ABS NEUTROPHIL COUNT 1.8; ANISOCYTOSIS 1+; EOSINOPHIL ABS CT 0; HEMATOCRIT 23.7 % (36.0-46.0); IMM.PLATELET FRACTION 11.5 (1-7); INSTRUMENT ABS NEUTROPHIL CT 1.6 K/uL; MCH 28.8 PG (29.0-34.0); MCHC 32.9 G/DL (30.0-36.0); MCV 87.5 FL (83-99); PLAT.SUFFICIENCY VERY DECREASED; RBC DIS.WIDTH-CV 16.6 % (11.8-14.6); RBC DIS.WIDTH-SD 51.2 % (39-53); RED BLOOD COUNT 2.71 M/uL (3.80-5.20)
[2017-09-04 22:57] LABS: PLATELET COUNT 18 K/uL (156-360); WHITE BLOOD COUNT 1.8 K/uL (4.1-10.2)
[2017-09-05] VITALS (14 sets, daily range): BP systolic 122–150; BP diastolic 62–86
[2017-09-05 06:04] LABS: POINT-OF-CARE METER ID UU13113774
[2017-09-05 06:07] LABS: HEMATOCRIT 22.8 % (36.0-46.0); MCH 28.6 PG (29.0-34.0); MCHC 32.9 G/DL (30.0-36.0); RBC DIS.WIDTH-CV 16.7 % (11.8-14.6); RED BLOOD COUNT 2.62 M/uL (3.80-5.20)
[2017-09-05 06:08] LABS: ANION GAP 8 MEQ/L (2-14); CHLORIDE 112 MEQ/L (99-109); GFR ESTIMATE (CALCULATED) > 59 mL/min/; GLUCOSE 195 mg/dL (70-99); MAGNESIUM 2.1 mg/dl (1.3-2.7); POTASSIUM 4.4 MEQ/L (3.7-5.4); SAMPLE HEMOLYSIS CHECK 0; SAMPLE ICTERIC CHECK 0; SAMPLE LIPEMIA CHECK 0; SODIUM 138 MEQ/L (136-147); UREA NITROGEN (BUN) 34 mg/dL (9-23)
[2017-09-05 06:09] LABS: ALKALINE PHOSPHATASE 74 IU/L (3-129); ANION GAP 7 MEQ/L (2-14); CHLORIDE 112 MEQ/L (99-109); GFR ESTIMATE (CALCULATED) > 59 mL/min/; GLUCOSE 197 mg/dL (70-99); POTASSIUM 4.3 MEQ/L (3.7-5.4); SAMPLE HEMOLYSIS CHECK 0; SAMPLE ICTERIC CHECK 0; SAMPLE LIPEMIA CHECK 0; SODIUM 137 MEQ/L (136-147); UREA NITROGEN (BUN) 34 mg/dL (9-23)
[2017-09-05 06:15] LABS: IMM.PLATELET FRACTION 10.2 (1-7); MEAN PLAT.VOLUME 13.2 uM^3 (9.5-12.4); PLAT.SUFFICIENCY VERY DECREASED
[2017-09-05 06:17] LABS: PLATELET COUNT 19 K/uL (156-360)
[2017-09-05 06:19] LABS: TOTAL BILIRUBIN 1.6 MG/DL (0.0-1.0); WHITE BLOOD COUNT 1.6 K/uL (4.1-10.2)
[2017-09-05 06:39] LABS: LACTATE DEHYDROGENASE 444 IU/L (20-246); URIC ACID 5.7 mg/dL (3.1-9.2)
[2017-09-05 11:28] LABS: POINT-OF-CARE METER ID UU13113774
[2017-09-05 16:20] LABS: ALKALINE PHOSPHATASE 86 IU/L (3-129); ANION GAP 8 MEQ/L (2-14); CHLORIDE 111 MEQ/L (99-109); GFR ESTIMATE (CALCULATED) > 59 mL/min/; GLUCOSE 208 mg/dL (70-99); MAGNESIUM 2.1 mg/dl (1.3-2.7); POTASSIUM 4.6 MEQ/L (3.7-5.4); SAMPLE HEMOLYSIS CHECK 1; SAMPLE ICTERIC CHECK 0; SAMPLE LIPEMIA CHECK 0; SODIUM 138 MEQ/L (136-147); TOTAL BILIRUBIN 1.6 MG/DL (0.0-1.0); UREA NITROGEN (BUN) 34 mg/dL (9-23)
[2017-09-05 16:25] LABS: HEMATOLOGY COMMENT 1 SN; PLAT.SUFFICIENCY DECREASED
[2017-09-05 16:30] LABS: HEMATOCRIT 22.8 % (36.0-46.0); MCH 28.5 PG (29.0-34.0); MCHC 32.5 G/DL (30.0-36.0); MCV 87.7 FL (83-99); PLATELET COUNT 19 K/uL (156-360); RBC DIS.WIDTH-CV 16.8 % (11.8-14.6); RBC DIS.WIDTH-SD 52.1 % (39-53); WHITE BLOOD COUNT 1.3 K/uL (4.1-10.2)
[2017-09-05 16:31] LABS: MEAN PLAT.VOLUME 13.7 uM^3 (9.5-12.4)
[2017-09-05 16:35] LABS: POINT-OF-CARE METER ID UU13113774
[2017-09-05 21:06] LABS: POINT-OF-CARE METER ID UU13113725
[2017-09-06] VITALS (12 sets, daily range): BP systolic 126–147; BP diastolic 65–77
[2017-09-06 06:02] LABS: POINT-OF-CARE METER ID UU13113725
[2017-09-06 06:22] LABS: ANION GAP 7 MEQ/L (2-14); CHLORIDE 113 MEQ/L (99-109); GFR ESTIMATE (CALCULATED) > 59 mL/min/; GLUCOSE 227 mg/dL (70-99); MAGNESIUM 2.2 mg/dl (1.3-2.7); POTASSIUM 4.7 MEQ/L (3.7-5.4); SAMPLE HEMOLYSIS CHECK 0; SAMPLE ICTERIC CHECK 0; SAMPLE LIPEMIA CHECK 0; SODIUM 139 MEQ/L (136-147); UREA NITROGEN (BUN) 38 mg/dL (9-23); URIC ACID 4.7 mg/dL (3.1-9.2)
[2017-09-06 06:23] LABS: HEMATOCRIT 21.7 % (36.0-46.0); LACTATE DEHYDROGENASE 329 IU/L (20-246); MCH 29.6 PG (29.0-34.0); MCHC 33.2 G/DL (30.0-36.0); MCV 89.3 FL (83-99); RBC DIS.WIDTH-CV 16.9 % (11.8-14.6); RBC DIS.WIDTH-SD 53.5 % (39-53); RED BLOOD COUNT 2.43 M/uL (3.80-5.20)
[2017-09-06 06:24] LABS: ALKALINE PHOSPHATASE 96 IU/L (3-129); ANION GAP 8 MEQ/L (2-14); CHLORIDE 113 MEQ/L (99-109); GFR ESTIMATE (CALCULATED) > 59 mL/min/; GLUCOSE 229 mg/dL (70-99); POTASSIUM 4.7 MEQ/L (3.7-5.4); SAMPLE HEMOLYSIS CHECK 0; SAMPLE ICTERIC CHECK 0; SAMPLE LIPEMIA CHECK 0; SODIUM 139 MEQ/L (136-147); TOTAL BILIRUBIN 1.7 MG/DL (0.0-1.0); UREA NITROGEN (BUN) 39 mg/dL (9-23)
[2017-09-06 06:26] LABS: WHITE BLOOD COUNT 0.8 K/uL (4.1-10.2)
[2017-09-06 06:58] LABS: ABS NEUTROPHIL COUNT 0.8; ANISOCYTOSIS 1+; BAND NEUTROPHILS 0.9 % (0-8.0); EOSINOPHIL ABS CT 0; HYPOCHROMASIA 1+; IMM.PLATELET FRACTION 11.7 (1-7); INSTRUMENT ABS NEUTROPHIL CT 0.6 K/uL; LYMPHOCYTES 2.8 % (15.0-45.0); MICROCYTOSIS 1+; PLAT.SUFFICIENCY VERY DECREASED; SEG.NEUTROPHILS 96.3 % (46.0-76.0)
[2017-09-06 06:59] LABS: PLATELET COUNT 13 K/uL (156-360)
[2017-09-06 10:58] LABS: POINT-OF-CARE METER ID UU13113725
[2017-09-06 16:12] LABS: ALKALINE PHOSPHATASE 111 IU/L (3-129); ANION GAP 9 MEQ/L (2-14); CHLORIDE 111 MEQ/L (99-109); GFR ESTIMATE (CALCULATED) > 59 mL/min/; GLUCOSE 266 mg/dL (70-99); MAGNESIUM 2.1 mg/dl (1.3-2.7); POTASSIUM 4.4 MEQ/L (3.7-5.4); SAMPLE HEMOLYSIS CHECK 0; SAMPLE ICTERIC CHECK 0; SAMPLE LIPEMIA CHECK 0; SODIUM 137 MEQ/L (136-147); TOTAL BILIRUBIN 1.6 MG/DL (0.0-1.0); UREA NITROGEN (BUN) 37 mg/dL (9-23)
[2017-09-06 16:35] LABS: POINT-OF-CARE METER ID UU13113774
[2017-09-06 17:11] LABS: PLAT.SUFFICIENCY DECREASED
[2017-09-06 17:15] LABS: HEMATOCRIT 21.3 % (36.0-46.0); IMM.PLATELET FRACTION 9.8 (1-7); MCH 29.2 PG (29.0-34.0); MCHC 33.3 G/DL (30.0-36.0); MCV 87.7 FL (83-99); MEAN PLAT.VOLUME 10.8 uM^3 (9.5-12.4); PLATELET COUNT 12 K/uL (156-360); RBC DIS.WIDTH-CV 16.8 % (11.8-14.6); RED BLOOD COUNT 2.43 M/uL (3.80-5.20); WHITE BLOOD COUNT 0.7 K/uL (4.1-10.2)
[2017-09-06 21:19] LABS: POINT-OF-CARE METER ID UU13113774
[2017-09-07] VITALS (12 sets, daily range): BP systolic 123–156; BP diastolic 71–87
[2017-09-07 06:16] LABS: ALKALINE PHOSPHATASE 111 IU/L (3-129); ANION GAP 6 MEQ/L (2-14); CHLORIDE 113 MEQ/L (99-109); GFR ESTIMATE (CALCULATED) > 59 mL/min/; GLUCOSE 257 mg/dL (70-99); POTASSIUM 4.5 MEQ/L (3.7-5.4); SAMPLE HEMOLYSIS CHECK 0; SAMPLE ICTERIC CHECK 0; SAMPLE LIPEMIA CHECK 0; SODIUM 138 MEQ/L (136-147); TOTAL BILIRUBIN 1.7 MG/DL (0.0-1.0); UREA NITROGEN (BUN) 36 mg/dL (9-23)
[2017-09-07 06:17] LABS: ANION GAP 7 MEQ/L (2-14); CHLORIDE 113 MEQ/L (99-109); GFR ESTIMATE (CALCULATED) > 59 mL/min/; GLUCOSE 254 mg/dL (70-99); LACTATE DEHYDROGENASE 274 IU/L (20-246); MAGNESIUM 2.1 mg/dl (1.3-2.7); POTASSIUM 4.6 MEQ/L (3.7-5.4); SAMPLE HEMOLYSIS CHECK 0; SAMPLE ICTERIC CHECK 0; SAMPLE LIPEMIA CHECK 0; SODIUM 139 MEQ/L (136-147); UREA NITROGEN (BUN) 36 mg/dL (9-23)
[2017-09-07 06:51] LABS: HEMATOCRIT 20.8 % (36.0-46.0); MCH 29.5 PG (29.0-34.0); MCHC 33.2 G/DL (30.0-36.0); MCV 88.9 FL (83-99); RBC DIS.WIDTH-CV 16.6 % (11.8-14.6); RBC DIS.WIDTH-SD 53.7 % (39-53); RED BLOOD COUNT 2.34 M/uL (3.80-5.20)
[2017-09-07 07:00] LABS: WHITE BLOOD COUNT 0.4 K/uL (4.1-10.2)
[2017-09-07 07:20] LABS: POINT-OF-CARE METER ID UU13113774
[2017-09-07 09:05] LABS: IMM.PLATELET FRACTION 12.4 (1-7); MEAN PLAT.VOLUME 13.6 uM^3 (9.5-12.4); PLAT.SUFFICIENCY DECREASED; PLATELET COUNT 9 K/uL (156-360)
[2017-09-07 11:34] LABS: POINT-OF-CARE METER ID UU13113774
[2017-09-07 15:47] LABS: ALKALINE PHOSPHATASE 109 IU/L (3-129); ANION GAP 9 MEQ/L (2-14); CHLORIDE 112 MEQ/L (99-109); GFR ESTIMATE (CALCULATED) > 59 mL/min/; GLUCOSE 251 mg/dL (70-99); MAGNESIUM 2.1 mg/dl (1.3-2.7); POTASSIUM 4.5 MEQ/L (3.7-5.4); SAMPLE HEMOLYSIS CHECK 0; SAMPLE ICTERIC CHECK 0; SAMPLE LIPEMIA CHECK 0; SODIUM 138 MEQ/L (136-147); TOTAL BILIRUBIN 1.7 MG/DL (0.0-1.0); UREA NITROGEN (BUN) 31 mg/dL (9-23)
[2017-09-07 16:05] LABS: POINT-OF-CARE METER ID UU13113774
[2017-09-07 22:53] LABS: POINT-OF-CARE METER ID UU13113774; POINT-OF-CARE USER ID AHSUCEG
[2017-09-08] VITALS (15 sets, daily range): BP systolic 131–157; BP diastolic 70–85
[2017-09-08 01:47] LABS: POINT-OF-CARE METER ID UU13113725
[2017-09-08 02:14] LABS: HEMATOCRIT 26.2 % (36.0-46.0); MCH 30.3 PG (29.0-34.0); MCV 89.1 FL (83-99); RBC DIS.WIDTH-CV 15.9 % (11.8-14.6); RBC DIS.WIDTH-SD 50.8 % (39-53)
[2017-09-08 02:48] LABS: RED BLOOD COUNT 2.94 M/uL (3.80-5.20); WHITE BLOOD COUNT 0.2 K/uL (4.1-10.2)
[2017-09-08 02:55] LABS: ABS NEUTROPHIL COUNT 0.1; ANISOCYTOSIS 1+; BAND NEUTROPHILS 3.6 % (0-8.0); BASOPHILS 3.6 %; EOSINOPHIL ABS CT 0; HYPOCHROMASIA 1+; IMM.PLATELET FRACTION 5.4 (1-7); INSTRUMENT ABS NEUTROPHIL CT 0.1 K/uL; LYMPHOCYTES 21.4 % (15.0-45.0); MEAN PLAT.VOLUME 12.4 uM^3 (9.5-12.4); MICROCYTOSIS 1+; OVALOCYTES 1+; PLAT.SUFFICIENCY VERY DECREASED; POIKILOCYTOSIS 1+; TEAR DROP CELLS 1+
[2017-09-08 02:56] LABS: PLATELET COUNT 21 K/uL (156-360); SEG.NEUTROPHILS 67.8 % (46.0-76.0)
[2017-09-08 06:26] LABS: POINT-OF-CARE METER ID UU13113774
[2017-09-08 07:00] LABS: HEMATOCRIT 26.7 % (36.0-46.0); MCH 29.9 PG (29.0-34.0); MCHC 33.3 G/DL (30.0-36.0); MCV 89.6 FL (83-99); RBC DIS.WIDTH-CV 15.7 % (11.8-14.6); RBC DIS.WIDTH-SD 50.8 % (39-53); RED BLOOD COUNT 2.98 M/uL (3.80-5.20)
[2017-09-08 07:15] LABS: WHITE BLOOD COUNT 0.1 K/uL (4.1-10.2)
[2017-09-08 07:18] LABS: ALKALINE PHOSPHATASE 109 IU/L (3-129); ANION GAP 8 MEQ/L (2-14); CHLORIDE 113 MEQ/L (99-109); GFR ESTIMATE (CALCULATED) > 59 mL/min/; GLUCOSE 134 mg/dL (70-99); POTASSIUM 3.9 MEQ/L (3.7-5.4); SAMPLE HEMOLYSIS CHECK 0; SAMPLE ICTERIC CHECK 0; SAMPLE LIPEMIA CHECK 0; SODIUM 140 MEQ/L (136-147); TOTAL BILIRUBIN 2.2 MG/DL (0.0-1.0); UREA NITROGEN (BUN) 29 mg/dL (9-23)
[2017-09-08 07:22] LABS: MEAN PLAT.VOLUME 13.3 uM^3 (9.5-12.4); PLAT.SUFFICIENCY DECREASED
[2017-09-08 07:26] LABS: PLATELET COUNT 11 K/uL (156-360)
[2017-09-08 07:31] LABS: LACTATE DEHYDROGENASE 250 IU/L (20-246); URIC ACID 3.7 mg/dL (3.1-9.2)
[2017-09-08 10:58] LABS: POINT-OF-CARE METER ID UU13113725
[2017-09-08 15:15] LABS: CHLORIDE 111 mEq/L (99-109); POTASSIUM 4.2 mEq/L (3.7-5.4); SODIUM 139 mEq/L (136-147)
[2017-09-08 15:16] LABS: MAGNESIUM 1.7 mg/dL (1.3-2.7)
[2017-09-08 15:18] LABS: GLUCOSE 250 mg/dL (70-99)
[2017-09-08 15:19] LABS: ANION GAP 10 MEQ/L (2-14)
[2017-09-08 15:21] LABS: GFR ESTIMATE (CALCULATED) > 59 mL/min/
[2017-09-08 15:22] LABS: UREA NITROGEN (BUN) 26 mg/dL (9-23)
[2017-09-08 15:24] LABS: ALKALINE PHOSPHATASE 137 IU/L (3-129)
[2017-09-08 16:06] LABS: POINT-OF-CARE METER ID UU13113774
[2017-09-08 18:20] LABS: HEMATOCRIT 24.7 % (36.0-46.0); IMM.PLATELET FRACTION 9.1 (1-7); MCH 29.3 PG (29.0-34.0); MCHC 33.2 G/DL (30.0-36.0); MCV 88.2 FL (83-99); PLATELET COUNT 7 K/uL (156-360); RBC DIS.WIDTH-CV 15.7 % (11.8-14.6); RBC DIS.WIDTH-SD 49.8 % (39-53); WHITE BLOOD COUNT 0.1 K/uL (4.1-10.2)
[2017-09-08 18:38] LABS: PLAT.SUFFICIENCY VERY DECREASED
[2017-09-08 21:14] LABS: POINT-OF-CARE METER ID UU13113725
[2017-09-09] VITALS (15 sets, daily range): BP systolic 138–165; BP diastolic 71–80
[2017-09-09 05:50] LABS: POINT-OF-CARE METER ID UU13113725
[2017-09-09 06:07] LABS: MCH 29.8 PG (29.0-34.0); MCHC 33.6 G/DL (30.0-36.0); MCV 88.7 FL (83-99); RBC DIS.WIDTH-CV 15.7 % (11.8-14.6); RBC DIS.WIDTH-SD 50.6 % (39-53); RED BLOOD COUNT 2.82 M/uL (3.80-5.20)
[2017-09-09 06:08] LABS: WHITE BLOOD COUNT 0.1 K/uL (4.1-10.2)
[2017-09-09 06:40] LABS: IMM.PLATELET FRACTION 9.3 (1-7); PLAT.SUFFICIENCY DECREASED
[2017-09-09 06:47] LABS: ALKALINE PHOSPHATASE 115 IU/L (3-129); ANION GAP 11 MEQ/L (2-14); CHLORIDE 111 MEQ/L (99-109); GFR ESTIMATE (CALCULATED) > 59 mL/min/; LACTATE DEHYDROGENASE 217 IU/L (20-246); MAGNESIUM 1.7 mg/dl (1.3-2.7); POTASSIUM 3.5 MEQ/L (3.7-5.4); SAMPLE HEMOLYSIS CHECK 0; SAMPLE ICTERIC CHECK 0; SAMPLE LIPEMIA CHECK 0; SODIUM 144 MEQ/L (136-147); TOTAL BILIRUBIN 1.8 MG/DL (0.0-1.0); UREA NITROGEN (BUN) 22 mg/dL (9-23); URIC ACID 3.6 mg/dL (3.1-9.2)
[2017-09-09 06:50] LABS: GLUCOSE 119 mg/dL (70-99)
[2017-09-09 07:01] LABS: PLATELET COUNT 6 K/uL (156-360)
[2017-09-09 11:43] LABS: POINT-OF-CARE METER ID UU13113774
[2017-09-09 16:05] LABS: POINT-OF-CARE METER ID UU13113774
[2017-09-09 17:18] LABS: HEMATOCRIT 23.3 % (36.0-46.0); IMM.PLATELET FRACTION 4.5 (1-7); MCH 29.7 PG (29.0-34.0); MCHC 33.5 G/DL (30.0-36.0); MCV 88.6 FL (83-99); MEAN PLAT.VOLUME 10.2 uM^3 (9.5-12.4); PLAT.SUFFICIENCY VERY DECREASED; PLATELET COUNT 12 K/uL (156-360); RBC DIS.WIDTH-CV 15.3 % (11.8-14.6); RBC DIS.WIDTH-SD 49.5 % (39-53); RED BLOOD COUNT 2.63 M/uL (3.80-5.20)
[2017-09-09 17:20] LABS: ALKALINE PHOSPHATASE 111 IU/L (3-129); ANION GAP 11 MEQ/L (2-14); CHLORIDE 107 MEQ/L (99-109); GFR ESTIMATE (CALCULATED) > 59 mL/min/; MAGNESIUM 1.5 mg/dl (1.3-2.7); POTASSIUM 3.7 MEQ/L (3.7-5.4); SAMPLE HEMOLYSIS CHECK 0; SAMPLE ICTERIC CHECK 0; SAMPLE LIPEMIA CHECK 0; SODIUM 140 MEQ/L (136-147); TOTAL BILIRUBIN 1.5 MG/DL (0.0-1.0); UREA NITROGEN (BUN) 19 mg/dL (9-23)
[2017-09-09 17:21] LABS: GLUCOSE 258 mg/dL (70-99)
[2017-09-09 17:31] LABS: INTER. NORMALIZED RATIO 1.3; PROTHROMBIN TIME 14.5 SEC (10.2-12.9)
[2017-09-09 18:02] LABS: FIBRINOGEN 287 mg/dL (150-450)
[2017-09-09 21:23] LABS: POINT-OF-CARE METER ID UU13113774
[2017-09-09 23:19] LABS: HEMATOCRIT 25.1 % (36.0-46.0); IMM.PLATELET FRACTION 6.1 (1-7); MCH 29.9 PG (29.0-34.0); MCHC 33.9 G/DL (30.0-36.0); MCV 88.4 FL (83-99); RBC DIS.WIDTH-CV 15.2 % (11.8-14.6); RBC DIS.WIDTH-SD 49.5 % (39-53); RED BLOOD COUNT 2.84 M/uL (3.80-5.20)
[2017-09-09 23:20] LABS: MEAN PLAT.VOLUME 12.4 uM^3 (9.5-12.4); WHITE BLOOD COUNT 0.1 K/uL (4.1-10.2)
[2017-09-09 23:53] LABS: PLATELET COUNT 12 K/uL (156-360)
[2017-09-10] VITALS (15 sets, daily range): BP systolic 86–173; BP diastolic 46–81
[2017-09-10 06:01] LABS: HEMATOCRIT 25.5 % (36.0-46.0); MCH 30.4 PG (29.0-34.0); MCHC 33.7 G/DL (30.0-36.0); MCV 90.1 FL (83-99); RBC DIS.WIDTH-CV 15.3 % (11.8-14.6); RBC DIS.WIDTH-SD 50.1 % (39-53); RED BLOOD COUNT 2.83 M/uL (3.80-5.20)
[2017-09-10 06:05] LABS: ALKALINE PHOSPHATASE 109 IU/L (3-129); ANION GAP 8 MEQ/L (2-14); ANION GAP 9 MEQ/L (2-14); CHLORIDE 105 MEQ/L (99-109); CHLORIDE 106 MEQ/L (99-109); GFR ESTIMATE (CALCULATED) > 59 mL/min/; GLUCOSE 186 mg/dL (70-99); GLUCOSE 191 mg/dL (70-99); MAGNESIUM 1.5 mg/dl (1.3-2.7); POTASSIUM 3.9 MEQ/L (3.7-5.4); SAMPLE HEMOLYSIS CHECK 0; SAMPLE ICTERIC CHECK 0; SAMPLE LIPEMIA CHECK 0; SODIUM 140 MEQ/L (136-147); SODIUM 141 MEQ/L (136-147); TOTAL BILIRUBIN 1.6 MG/DL (0.0-1.0); UREA NITROGEN (BUN) 18 mg/dL (9-23); URIC ACID 3.1 mg/dL (3.1-9.2)
[2017-09-10 06:06] LABS: LACTATE DEHYDROGENASE 182 IU/L (20-246)
[2017-09-10 06:17] LABS: POINT-OF-CARE METER ID UU13113725
[2017-09-10 06:24] LABS: IMM.PLATELET FRACTION 5.6 (1-7); MEAN PLAT.VOLUME 10.9 uM^3 (9.5-12.4); PLAT.SUFFICIENCY VERY DECREASED
[2017-09-10 06:25] LABS: PLATELET COUNT 9 K/uL (156-360)
[2017-09-10 07:33] LABS: ADD MIUA? YES; BILIRUBIN NEGATIVE; BLOOD MODERATE; COLOR AMBER ((YELLOW)); GLUCOSE (STRIP) 50; KETONES NEGATIVE; LEUKOCYTES NEGATIVE; NITRITE NEGATIVE; PROTEIN (STRIP) NEGATIVE; SPECIFIC GRAVITY 1.017 (1.000-1.030)
[2017-09-10 07:39] LABS: BACTERIA NONE SEEN /HPF; EPITHELIAL CELLS NONE SEEN /HPF; MUCUS TRACE /LPF; RED BLOOD CELLS 20-30 /HPF (0-5); UCUL ADDED? NO; WHITE BLOOD CELLS 0-5 /HPF (0-5)
[2017-09-10 11:11] LABS: POINT-OF-CARE METER ID UU13113774
[2017-09-10 15:49] LABS: HEMATOCRIT 20.7 % (36.0-46.0); MCH 29.3 PG (29.0-34.0); MCHC 32.9 G/DL (30.0-36.0); MCV 89.2 FL (83-99); RBC DIS.WIDTH-CV 15.3 % (11.8-14.6); RBC DIS.WIDTH-SD 49.1 % (39-53); RED BLOOD COUNT 2.32 M/uL (3.80-5.20)
[2017-09-10 15:55] LABS: ALKALINE PHOSPHATASE 100 IU/L (3-129); ANION GAP 9 MEQ/L (2-14); CHLORIDE 106 MEQ/L (99-109); GFR ESTIMATE (CALCULATED) > 59 mL/min/; GLUCOSE 259 mg/dL (70-99); MAGNESIUM 1.3 mg/dl (1.3-2.7); POTASSIUM 3.6 MEQ/L (3.7-5.4); SAMPLE HEMOLYSIS CHECK 0; SAMPLE ICTERIC CHECK 0; SAMPLE LIPEMIA CHECK 0; SODIUM 139 MEQ/L (136-147); TOTAL BILIRUBIN 1.6 MG/DL (0.0-1.0); UREA NITROGEN (BUN) 22 mg/dL (9-23)
[2017-09-10 16:06] LABS: IMM.PLATELET FRACTION 8.7 (1-7); MEAN PLAT.VOLUME 10.9 uM^3 (9.5-12.4); PLAT.SUFFICIENCY VERY DECREASED
[2017-09-10 16:17] LABS: PLATELET COUNT 5 K/uL (156-360)
[2017-09-10 16:20] LABS: POINT-OF-CARE METER ID UU13113774
[2017-09-10 21:51] LABS: POINT-OF-CARE METER ID UU13113725
[2017-09-11] VITALS (17 sets, daily range): BP systolic 93–137; BP diastolic 47–77
[2017-09-11 04:19] LABS: HEMATOCRIT 23.7 % (36.0-46.0); MCH 29.6 PG (29.0-34.0); MCHC 33.8 G/DL (30.0-36.0); MCV 87.8 FL (83-99); RBC DIS.WIDTH-CV 15.5 % (11.8-14.6); RBC DIS.WIDTH-SD 48.9 % (39-53); WHITE BLOOD COUNT 0.1 K/uL (4.1-10.2)
[2017-09-11 04:25] LABS: CHLORIDE 110 mEq/L (99-109); POTASSIUM 3.4 mEq/L (3.7-5.4); SODIUM 140 mEq/L (136-147)
[2017-09-11 04:53] LABS: GLUCOSE 218 mg/dL (70-99)
[2017-09-11 04:55] LABS: ANION GAP 14 MEQ/L (2-14)
[2017-09-11 04:57] LABS: GFR ESTIMATE (CALCULATED) > 59 mL/min/
[2017-09-11 04:58] LABS: UREA NITROGEN (BUN) 30 mg/dL (9-23)
[2017-09-11 05:00] LABS: URIC ACID 3.1 mg/dL (3.1-9.2)
[2017-09-11 06:10] LABS: IMM.PLATELET FRACTION 14.2 (1-7); MEAN PLAT.VOLUME 12.7 uM^3 (9.5-12.4); PLAT.SUFFICIENCY VERY DECREASED
[2017-09-11 06:11] LABS: PLATELET COUNT 4 K/uL (156-360)
[2017-09-11 07:31] LABS: LACTATE DEHYDROGENASE 169 IU/L (20-246)
[2017-09-11 07:58] LABS: POINT-OF-CARE METER ID UU13113725
[2017-09-11 09:15] LABS: ALKALINE PHOSPHATASE 83 IU/L (3-129); ANION GAP 12 MEQ/L (2-14); CHLORIDE 107 MEQ/L (99-109); GFR ESTIMATE (CALCULATED) > 59 mL/min/; GLUCOSE 197 mg/dL (70-99); POTASSIUM 3.7 MEQ/L (3.7-5.4); SAMPLE HEMOLYSIS CHECK 0; SAMPLE ICTERIC CHECK 0; SAMPLE LIPEMIA CHECK 0; SODIUM 140 MEQ/L (136-147); UREA NITROGEN (BUN) 32 mg/dL (9-23)
[2017-09-11 09:16] LABS: TOTAL BILIRUBIN 2.2 MG/DL (0.0-1.0)
[2017-09-11 11:50] LABS: POINT-OF-CARE METER ID UU13113725
[2017-09-11 11:57] LABS: MCH 30.7 PG (29.0-34.0); MCHC 34.8 G/DL (30.0-36.0); MCV 88.1 FL (83-99); PLAT.SUFFICIENCY DECREASED; RBC DIS.WIDTH-CV 15.9 % (11.8-14.6); RBC DIS.WIDTH-SD 50.8 % (39-53); RED BLOOD COUNT 2.61 M/uL (3.80-5.20)
[2017-09-11 12:01] LABS: MEAN PLAT.VOLUME 15.4 uM^3 (9.5-12.4); PLATELET COUNT 4 K/uL (156-360); WHITE BLOOD COUNT 0.1 K/uL (4.1-10.2)
[2017-09-11 15:33] LABS: HEMATOCRIT 21.5 % (36.0-46.0); MCH 31.1 PG (29.0-34.0); MCHC 35.3 G/DL (30.0-36.0); MCV 88.1 FL (83-99); RBC DIS.WIDTH-CV 16.1 % (11.8-14.6); RBC DIS.WIDTH-SD 51.9 % (39-53); RED BLOOD COUNT 2.44 M/uL (3.80-5.20)
[2017-09-11 15:41] LABS: ALKALINE PHOSPHATASE 71 IU/L (3-129); ANION GAP 12 MEQ/L (2-14); CHLORIDE 105 MEQ/L (99-109); GFR ESTIMATE (CALCULATED) > 59 mL/min/; GLUCOSE 203 mg/dL (70-99); MAGNESIUM 1.7 mg/dl (1.3-2.7); POTASSIUM 3.7 MEQ/L (3.7-5.4); SAMPLE HEMOLYSIS CHECK 0; SAMPLE ICTERIC CHECK 0; SAMPLE LIPEMIA CHECK 0; SODIUM 138 MEQ/L (136-147); TOTAL BILIRUBIN 1.7 MG/DL (0.0-1.0); UREA NITROGEN (BUN) 33 mg/dL (9-23)
[2017-09-11 15:45] LABS: POINT-OF-CARE METER ID UU13113725
[2017-09-11 15:49] LABS: IMM.PLATELET FRACTION 9.9 (1-7); PLAT.SUFFICIENCY VERY DECREASED
[2017-09-11 15:50] LABS: MEAN PLAT.VOLUME 10.5 uM^3 (9.5-12.4); PLATELET COUNT 6 K/uL (156-360); WHITE BLOOD COUNT 0.1 K/uL (4.1-10.2)
[2017-09-11 21:10] LABS: POINT-OF-CARE METER ID UU13113698
[2017-09-12] VITALS (19 sets, daily range): BP systolic 115–158; BP diastolic 61–82
[2017-09-12 00:05] LABS: HEMATOCRIT 22.9 % (36.0-46.0); IMM.PLATELET FRACTION 17.3 (1-7); MCH 29.9 PG (29.0-34.0); MCHC 34.5 G/DL (30.0-36.0); MCV 86.7 FL (83-99); MEAN PLAT.VOLUME 13.2 uM^3 (9.5-12.4); RED BLOOD COUNT 2.64 M/uL (3.80-5.20)
[2017-09-12 00:06] LABS: WHITE BLOOD COUNT 0.1 K/uL (4.1-10.2)
[2017-09-12 00:07] LABS: PLATELET COUNT 3 K/uL (156-360)
[2017-09-12 06:00] LABS: ANION GAP 12 MEQ/L (2-14); CHLORIDE 106 MEQ/L (99-109); GFR ESTIMATE (CALCULATED) > 59 mL/min/; GLUCOSE 194 mg/dL (70-99); LACTATE DEHYDROGENASE 143 IU/L (20-246); MAGNESIUM 1.7 mg/dl (1.3-2.7); POTASSIUM 3.5 MEQ/L (3.7-5.4); SAMPLE HEMOLYSIS CHECK 0; SAMPLE ICTERIC CHECK 0; SAMPLE LIPEMIA CHECK 0; SODIUM 138 MEQ/L (136-147); UREA NITROGEN (BUN) 34 mg/dL (9-23); URIC ACID 3.2 mg/dL (3.1-9.2)
[2017-09-12 06:01] LABS: ALKALINE PHOSPHATASE 67 IU/L (3-129); ANION GAP 13 MEQ/L (2-14); CHLORIDE 106 MEQ/L (99-109); GFR ESTIMATE (CALCULATED) > 59 mL/min/; GLUCOSE 189 mg/dL (70-99); POTASSIUM 3.5 MEQ/L (3.7-5.4); SAMPLE HEMOLYSIS CHECK 0; SAMPLE ICTERIC CHECK 0; SAMPLE LIPEMIA CHECK 0; SODIUM 140 MEQ/L (136-147); TOTAL BILIRUBIN 1.9 MG/DL (0.0-1.0); UREA NITROGEN (BUN) 36 mg/dL (9-23)
[2017-09-12 06:48] LABS: ABS NEUTROPHIL COUNT 0.2; ANISOCYTOSIS 1+; BURR CELLS 1+; EOSINOPHIL ABS CT 0; HEMATOCRIT 21.5 % (36.0-46.0); HEMATOLOGY COMMENT 1 SN; HYPOCHROMASIA 1+; IMM.PLATELET FRACTION 17.7 (1-7); INSTRUMENT ABS NEUTROPHIL CT 0.1 K/uL; MACROCYTES 1+; MCH 30.2 PG (29.0-34.0); MCHC 34.4 G/DL (30.0-36.0); MCV 87.8 FL (83-99); MEAN PLAT.VOLUME 11.7 uM^3 (9.5-12.4); PLAT.SUFFICIENCY VERY DECREASED; POIKILOCYTOSIS 1+; RBC DIS.WIDTH-SD 50.8 % (39-53); RED BLOOD COUNT 2.45 M/uL (3.80-5.20); SPHEROCYTES 1+; TOX.VACUOLIZATION 3+; WHITE BLOOD COUNT 0.2 K/uL (4.1-10.2)
[2017-09-12 06:49] LABS: PLATELET COUNT 2 K/uL (156-360)
[2017-09-12 08:10] LABS: POINT-OF-CARE METER ID UU13113781
[2017-09-12 10:07] LABS: INTER. NORMALIZED RATIO 1.5; PROTHROMBIN TIME 16.8 SEC (10.2-12.9)
[2017-09-12 10:09] LABS: PTT 34.5 SEC (25-37)
[2017-09-12 11:19] LABS: POINT-OF-CARE METER ID UU14174216
[2017-09-12 15:08] LABS: HEMATOCRIT 19.9 % (36.0-46.0); IMM.PLATELET FRACTION 15.3 (1-7); MCH 30.8 PG (29.0-34.0); MCHC 35.2 G/DL (30.0-36.0); MCV 87.7 FL (83-99); RBC DIS.WIDTH-CV 16.4 % (11.8-14.6); RBC DIS.WIDTH-SD 51.8 % (39-53); RED BLOOD COUNT 2.27 M/uL (3.80-5.20)
[2017-09-12 15:09] LABS: PLATELET COUNT 4 K/uL (156-360); WHITE BLOOD COUNT 0.3 K/uL (4.1-10.2)
[2017-09-12 15:54] LABS: Heparin Induced Plt Ab Negative (Negative); UFH SRA Result Negative (Negative)
[2017-09-12 16:30] LABS: POINT-OF-CARE METER ID UU13113781
[2017-09-12 19:28] LABS: ALKALINE PHOSPHATASE 61 IU/L (3-129); ANION GAP 13 MEQ/L (2-14); CHLORIDE 103 MEQ/L (99-109); GFR ESTIMATE (CALCULATED) > 59 mL/min/; GLUCOSE 235 mg/dL (70-99); MAGNESIUM 1.6 mg/dl (1.3-2.7); POTASSIUM 3.6 MEQ/L (3.7-5.4); SAMPLE HEMOLYSIS CHECK 0; SAMPLE ICTERIC CHECK 0; SAMPLE LIPEMIA CHECK 0; SODIUM 136 MEQ/L (136-147); TOTAL BILIRUBIN 1.9 MG/DL (0.0-1.0); UREA NITROGEN (BUN) 36 mg/dL (9-23)
[2017-09-12 20:01] LABS: HEMATOCRIT 19.9 % (36.0-46.0); IMM.PLATELET FRACTION 24.8 (1-7); MCHC 34.2 G/DL (30.0-36.0); MCV 87.7 FL (83-99); PLATELET COUNT 4 K/uL (156-360); RBC DIS.WIDTH-CV 16.3 % (11.8-14.6); RBC DIS.WIDTH-SD 51.9 % (39-53); RED BLOOD COUNT 2.27 M/uL (3.80-5.20); WHITE BLOOD COUNT 0.3 K/uL (4.1-10.2)
[2017-09-12 20:40] LABS: PLAT.SUFFICIENCY VERY DECREASED
[2017-09-12 21:17] LABS: POINT-OF-CARE METER ID UU14314088
[2017-09-13] VITALS (16 sets, daily range): BP systolic 110–140; BP diastolic 64–84
[2017-09-13 04:59] LABS: CHLORIDE 106 mEq/L (99-109); POTASSIUM 3.5 mEq/L (3.7-5.4); SODIUM 135 mEq/L (136-147)
[2017-09-13 05:01] LABS: GLUCOSE 234 mg/dL (70-99)
[2017-09-13 05:03] LABS: ANION GAP 10 MEQ/L (2-14); TOTAL BILIRUBIN 2.4 mg/dL (0.0-1.0)
[2017-09-13 05:05] LABS: GFR ESTIMATE (CALCULATED) > 59 mL/min/
[2017-09-13 05:06] LABS: UREA NITROGEN (BUN) 37 mg/dL (9-23)
[2017-09-13 05:08] LABS: URIC ACID 3.3 mg/dL (3.1-9.2)
[2017-09-13 05:14] LABS: ALKALINE PHOSPHATASE 73 IU/L (3-129); MAGNESIUM 1.5 mg/dL (1.3-2.7)
[2017-09-13 07:41] LABS: POINT-OF-CARE METER ID UU14314088
[2017-09-13 09:27] LABS: HEMATOLOGY COMMENT 1 SN; PLAT.SUFFICIENCY VERY DECREASED
[2017-09-13 09:31] LABS: HEMATOCRIT 24.8 % (36.0-46.0); IMM.PLATELET FRACTION 24.5 (1-7); MCH 29.9 PG (29.0-34.0); MCHC 34.3 G/DL (30.0-36.0); MCV 87.3 FL (83-99); PLATELET COUNT 7 K/uL (156-360); RBC DIS.WIDTH-CV 15.7 % (11.8-14.6); RBC DIS.WIDTH-SD 50.1 % (39-53); RED BLOOD COUNT 2.84 M/uL (3.80-5.20); WHITE BLOOD COUNT 0.6 K/uL (4.1-10.2)
[2017-09-13 11:16] LABS: POINT-OF-CARE METER ID UU13113698
[2017-09-13 14:29] LABS: HEMATOCRIT 24.9 % (36.0-46.0); MCH 30.4 PG (29.0-34.0); MCHC 34.9 G/DL (30.0-36.0); MCV 87.1 FL (83-99); RBC DIS.WIDTH-CV 15.9 % (11.8-14.6); RBC DIS.WIDTH-SD 50.3 % (39-53); RED BLOOD COUNT 2.86 M/uL (3.80-5.20)
[2017-09-13 14:43] LABS: PLAT.SUFFICIENCY DECREASED; PLATELET COUNT 8 K/uL (156-360); WHITE BLOOD COUNT 0.7 K/uL (4.1-10.2)
[2017-09-13 14:49] LABS: ALKALINE PHOSPHATASE 61 IU/L (3-129); ANION GAP 13 MEQ/L (2-14); CHLORIDE 105 MEQ/L (99-109); GFR ESTIMATE (CALCULATED) > 59 mL/min/; GLUCOSE 242 mg/dL (70-99); MAGNESIUM 1.6 mg/dl (1.3-2.7); POTASSIUM 3.5 MEQ/L (3.7-5.4); SAMPLE HEMOLYSIS CHECK 0; SAMPLE ICTERIC CHECK 0; SAMPLE LIPEMIA CHECK 0; SODIUM 138 MEQ/L (136-147); UREA NITROGEN (BUN) 39 mg/dL (9-23)
[2017-09-13 16:18] LABS: POINT-OF-CARE METER ID UU14314088
[2017-09-13 21:07] LABS: POINT-OF-CARE METER ID UU13113698
[2017-09-14 03:42] VITALS: BP 124/61
[2017-09-14 05:41] LABS: ANION GAP 13 MEQ/L (2-14); CHLORIDE 105 MEQ/L (99-109); GFR ESTIMATE (CALCULATED) > 59 mL/min/; GLUCOSE 231 mg/dL (70-99); POTASSIUM 3.4 MEQ/L (3.7-5.4); SAMPLE HEMOLYSIS CHECK 0; SAMPLE ICTERIC CHECK 0; SAMPLE LIPEMIA CHECK 0; SODIUM 138 MEQ/L (136-147); UREA NITROGEN (BUN) 39 mg/dL (9-23)
[2017-09-14 06:22] LABS: HEMATOCRIT 24.9 % (36.0-46.0); MCH 29.7 PG (29.0-34.0); MCHC 33.7 G/DL (30.0-36.0); RBC DIS.WIDTH-SD 51.4 % (39-53); RED BLOOD COUNT 2.83 M/uL (3.80-5.20)
[2017-09-14 06:25] LABS: WHITE BLOOD COUNT 1.1 K/uL (4.1-10.2)
[2017-09-14 06:51] LABS: ABS NEUTROPHIL COUNT 0.9; ATYPICAL LYMPHOCYTE 1.9 %; BAND NEUTROPHILS 8.5 % (0-8.0); BASOPHILS 7.5 %; EOSINOPHIL ABS CT 0; IMM.PLATELET FRACTION 26.5 (1-7); INSTRUMENT ABS NEUTROPHIL CT 0.9 K/uL; LYMPHOCYTES 1.9 % (15.0-45.0); PLAT.SUFFICIENCY VERY DECREASED; SEG.NEUTROPHILS 76.4 % (46.0-76.0)
[2017-09-14 07:40] LABS: PLATELET COUNT 11 K/uL (156-360)
[2017-09-14 08:00] VITALS: BP 125/64
[2017-09-14 08:20] LABS: POINT-OF-CARE METER ID UU13113781
[2017-09-14 11:38] LABS: POINT-OF-CARE METER ID UU14174216
[2017-09-14 12:40] VITALS: BP 127/77
[2017-09-14 16:00] VITALS: BP 120/70
[2017-09-14 16:21] LABS: HEMATOCRIT 24.7 % (36.0-46.0); IMM.PLATELET FRACTION 26.1 (1-7); MCH 29.9 PG (29.0-34.0); MCHC 33.6 G/DL (30.0-36.0); MCV 88.8 FL (83-99); PLAT.SUFFICIENCY VERY DECREASED; PLATELET COUNT 18 K/uL (156-360); RBC DIS.WIDTH-CV 16.1 % (11.8-14.6); RBC DIS.WIDTH-SD 52.4 % (39-53); RED BLOOD COUNT 2.78 M/uL (3.80-5.20); WHITE BLOOD COUNT 1.7 K/uL (4.1-10.2)
[2017-09-14 16:50] LABS: POINT-OF-CARE METER ID UU13113698
[2017-09-14 19:30] VITALS: BP 126/63
[2017-09-14 21:08] LABS: POINT-OF-CARE METER ID UU13113781
[2017-09-15] VITALS (7 sets, daily range): BP systolic 116–135; BP diastolic 57–76
[2017-09-15 07:39] LABS: POINT-OF-CARE METER ID UU14314088
[2017-09-15 10:27] LABS: ANION GAP 11 MEQ/L (2-14); CHLORIDE 108 MEQ/L (99-109); GFR ESTIMATE (CALCULATED) > 59 mL/min/; GLUCOSE 244 mg/dL (70-99); POTASSIUM 3.4 MEQ/L (3.7-5.4); SAMPLE HEMOLYSIS CHECK 0; SAMPLE ICTERIC CHECK 0; SAMPLE LIPEMIA CHECK 0; SODIUM 141 MEQ/L (136-147); UREA NITROGEN (BUN) 38 mg/dL (9-23)
[2017-09-15 10:34] LABS: HEMATOCRIT 26.5 % (36.0-46.0); HEMATOLOGY COMMENT 1 SN; MCH 29.4 PG (29.0-34.0); MCHC 32.8 G/DL (30.0-36.0); MCV 89.5 FL (83-99); PLAT.SUFFICIENCY VERY DECREASED; RBC DIS.WIDTH-SD 52.5 % (39-53); RED BLOOD COUNT 2.96 M/uL (3.80-5.20); WHITE BLOOD COUNT 2.8 K/uL (4.1-10.2)
[2017-09-15 10:36] LABS: PLATELET COUNT 23 K/uL (156-360)
[2017-09-15 11:26] LABS: POINT-OF-CARE METER ID UU14314088
[2017-09-15 12:03] LABS: MAGNESIUM 1.8 mg/dl (1.3-2.7)
[2017-09-15 15:13] LABS: HEMATOCRIT 26.4 % (36.0-46.0); MCH 29.9 PG (29.0-34.0); MCHC 33.3 G/DL (30.0-36.0); MCV 89.8 FL (83-99); RED BLOOD COUNT 2.94 M/uL (3.80-5.20); WHITE BLOOD COUNT 3.9 K/uL (4.1-10.2)
[2017-09-15 15:35] LABS: IMM.PLATELET FRACTION 25.2 (1-7); PLATELET CLUMPS PRESENT - PLATELET COUNTS APPEARS DECREASED
[2017-09-15 15:40] LABS: PLATELET COUNT UNABLE TO REPORT K/uL (156-360)
[2017-09-15 16:37] LABS: POINT-OF-CARE METER ID UU14314088
[2017-09-15 20:46] LABS: POINT-OF-CARE METER ID UU14314088
[2017-09-16 05:47] LABS: HEMATOCRIT 26.1 % (36.0-46.0); MCH 30.2 PG (29.0-34.0); MCV 91.6 FL (83-99); RBC DIS.WIDTH-CV 16.2 % (11.8-14.6); RBC DIS.WIDTH-SD 54.2 % (39-53); RED BLOOD COUNT 2.85 M/uL (3.80-5.20); WHITE BLOOD COUNT 6.1 K/uL (4.1-10.2)
[2017-09-16 06:10] LABS: ANION GAP 11 MEQ/L (2-14); CHLORIDE 111 MEQ/L (99-109); GFR ESTIMATE (CALCULATED) > 59 mL/min/; GLUCOSE 242 mg/dL (70-99); POTASSIUM 3.7 MEQ/L (3.7-5.4); SAMPLE HEMOLYSIS CHECK 0; SAMPLE ICTERIC CHECK 0; SAMPLE LIPEMIA CHECK 0; SODIUM 145 MEQ/L (136-147); UREA NITROGEN (BUN) 41 mg/dL (9-23)
[2017-09-16 06:11] LABS: ALKALINE PHOSPHATASE 94 IU/L (3-129); TOTAL BILIRUBIN 1.2 MG/DL (0.0-1.0)
[2017-09-16 06:18] VITALS: BP 133/76
[2017-09-16 07:07] LABS: ABS NEUTROPHIL COUNT 5.5; ATYPICAL LYMPHOCYTE 1.7 %; BAND NEUTROPHILS 8.8 % (0-8.0); EOSINOPHIL ABS CT 0; IMM.PLATELET FRACTION 24.4 (1-7); INSTRUMENT ABS NEUTROPHIL CT 5.2 K/uL; LYMPHOCYTES 0.9 % (15.0-45.0); METAMYELOCYTES 3.5 %; MYELOCYTES 0.9 %; PLAT.SUFFICIENCY VERY DECREASED; SEG.NEUTROPHILS 80.7 % (46.0-76.0)
[2017-09-16 07:13] LABS: PLATELET COUNT 32 K/uL (156-360)
[2017-09-16 07:55] LABS: POINT-OF-CARE METER ID UU13113781
[2017-09-16 09:13] VITALS: BP 156/75
[2017-09-16 11:10] LABS: INTERNAL CONTROL VALID? YES
[2017-09-16 12:12] LABS: POINT-OF-CARE METER ID UU13113781
[2017-09-16 12:30] VITALS: BP 130/65
[2017-09-16 15:44] VITALS: BP 134/62
[2017-09-16 16:31] LABS: POINT-OF-CARE METER ID UU13113725
[2017-09-16 19:53] VITALS: BP 135/79
[2017-09-16 21:38] LABS: POINT-OF-CARE METER ID UU13113725
[2017-09-16 23:28] VITALS: BP 136/67
[2017-09-17 04:17] VITALS: BP 138/68
[2017-09-17 05:45] LABS: HEMATOCRIT 26.5 % (36.0-46.0); MCH 30.8 PG (29.0-34.0); MCHC 33.6 G/DL (30.0-36.0); MCV 91.7 FL (83-99); RBC DIS.WIDTH-CV 16.2 % (11.8-14.6); RBC DIS.WIDTH-SD 54.4 % (39-53); RED BLOOD COUNT 2.89 M/uL (3.80-5.20); WHITE BLOOD COUNT 16.4 K/uL (4.1-10.2)
[2017-09-17 06:16] LABS: POINT-OF-CARE METER ID UU13113725
[2017-09-17 06:30] LABS: ANION GAP 11 MEQ/L (2-14); CHLORIDE 110 MEQ/L (99-109); GFR ESTIMATE (CALCULATED) > 59 mL/min/; GLUCOSE 242 mg/dL (70-99); POTASSIUM 3.4 MEQ/L (3.7-5.4); SAMPLE HEMOLYSIS CHECK 0; SAMPLE ICTERIC CHECK 0; SAMPLE LIPEMIA CHECK 0; SODIUM 143 MEQ/L (136-147); UREA NITROGEN (BUN) 45 mg/dL (9-23)
[2017-09-17 06:31] LABS: ABS NEUTROPHIL COUNT 14.5; BAND NEUTROPHILS 13.4 % (0-8.0); EOSINOPHIL ABS CT 0; IMM.PLATELET FRACTION 19.3 (1-7); INSTRUMENT ABS NEUTROPHIL CT 13.6 K/uL; LYMPHOCYTES 4.5 % (15.0-45.0); METAMYELOCYTES 1.8 %; PLAT.SUFFICIENCY DECREASED
[2017-09-17 06:35] LABS: PLATELET COUNT 55 K/uL (156-360)
[2017-09-17 07:49] VITALS: BP 145/71
[2017-09-17 11:51] LABS: POINT-OF-CARE METER ID UU13113774
[2017-09-17 12:19] VITALS: BP 142/70
[2017-09-17 15:18] VITALS: BP 135/65
[2017-09-17 16:59] LABS: POINT-OF-CARE METER ID UU13113725
[2017-09-17 21:24] LABS: POINT-OF-CARE METER ID UU13113774
[2017-09-18 00:20] VITALS: BP 101/76
[2017-09-18 05:46] LABS: POINT-OF-CARE METER ID UU13113725
[2017-09-18 08:06] VITALS: BP 131/60
[2017-09-18 09:43] LABS: MCH 30.5 PG (29.0-34.0); MCHC 32.8 G/DL (30.0-36.0); MCV 93.2 FL (83-99); RBC DIS.WIDTH-CV 16.1 % (11.8-14.6); RBC DIS.WIDTH-SD 55.1 % (39-53); RED BLOOD COUNT 3.11 M/uL (3.80-5.20); WHITE BLOOD COUNT 35.2 K/uL (4.1-10.2)
[2017-09-18 09:57] LABS: ANION GAP 12 MEQ/L (2-14); CHLORIDE 111 MEQ/L (99-109); GFR ESTIMATE (CALCULATED) > 59 mL/min/; GLUCOSE 114 mg/dL (70-99); POTASSIUM 3.2 MEQ/L (3.7-5.4); SAMPLE HEMOLYSIS CHECK 0; SAMPLE ICTERIC CHECK 0; SAMPLE LIPEMIA CHECK 0; SODIUM 145 MEQ/L (136-147); UREA NITROGEN (BUN) 47 mg/dL (9-23)
[2017-09-18 10:05] LABS: ABS NEUTROPHIL COUNT 32.1; ANISOCYTOSIS 1+; BAND NEUTROPHILS 25.1 % (0-8.0); EOSINOPHIL ABS CT 0; INSTRUMENT ABS NEUTROPHIL CT 29.2 K/uL; LYMPHOCYTES 1.7 % (15.0-45.0); MEAN PLAT.VOLUME 12.8 uM^3 (9.5-12.4); METAMYELOCYTES 3.8 %; MYELOCYTES 2.6 %; PLAT.SUFFICIENCY DECREASED
[2017-09-18 10:09] LABS: PLATELET COUNT 72 K/uL (156-360)
[2017-09-18 11:10] LABS: POINT-OF-CARE METER ID UU13113725
[2017-09-18 11:22] LABS: VANCOMYCIN, TROUGH 25.1 MCG/ML (10-20)
[2017-09-18 14:05] LABS: ADD MIUA? YES; BILIRUBIN NEGATIVE; BLOOD SMALL; COLOR STRAW ((YELLOW)); GLUCOSE (STRIP) NEGATIVE; KETONES NEGATIVE; LEUKOCYTES NEGATIVE; NITRITE NEGATIVE; PROTEIN (STRIP) NEGATIVE; SPECIFIC GRAVITY 1.005 (1.000-1.030); UROBILINOGEN 0.2 MG/DL (0.2-1.0)
[2017-09-18 14:10] LABS: BACTERIA RARE /HPF; BUDDING YEAST RARE; EPITHELIAL CELLS RARE /HPF; MUCUS TRACE /LPF; RED BLOOD CELLS 0-5 /HPF (0-5); UCUL ADDED? NO; WHITE BLOOD CELLS 0-5 /HPF (0-5)
[2017-09-18 16:13] LABS: POINT-OF-CARE METER ID UU13113774
[2017-09-18 16:41] VITALS: BP 133/62
[2017-09-18 21:51] LABS: POINT-OF-CARE METER ID UU13113725
[2017-09-18 23:20] VITALS: BP 129/70
[2017-09-19 05:55] LABS: POINT-OF-CARE METER ID UU13113774
[2017-09-19 06:32] LABS: ANION GAP 13 MEQ/L (2-14); CHLORIDE 107 MEQ/L (99-109); GFR ESTIMATE (CALCULATED) > 59 mL/min/; GLUCOSE 100 mg/dL (70-99); POTASSIUM 3.2 MEQ/L (3.7-5.4); SAMPLE HEMOLYSIS CHECK 0; SAMPLE ICTERIC CHECK 0; SAMPLE LIPEMIA CHECK 0; SODIUM 145 MEQ/L (136-147); UREA NITROGEN (BUN) 42 mg/dL (9-23); VANCOMYCIN, TROUGH 13.9 MCG/ML (10-20)
[2017-09-19 07:30] LABS: HEMATOCRIT 27.9 % (36.0-46.0); MCH 30.4 PG (29.0-34.0); MCV 92.1 FL (83-99); RBC DIS.WIDTH-CV 15.9 % (11.8-14.6); RBC DIS.WIDTH-SD 54.1 % (39-53); RED BLOOD COUNT 3.03 M/uL (3.80-5.20)
[2017-09-19 07:35] LABS: WHITE BLOOD COUNT 49.3 K/uL (4.1-10.2)
[2017-09-19 07:52] VITALS: BP 141/70
[2017-09-19 09:46] LABS: ABS NEUTROPHIL COUNT 46.3; ANISOCYTOSIS 1+; BAND NEUTROPHILS 20.5 % (0-8.0); EOSINOPHIL ABS CT 0; LYMPHOCYTES 0.5 % (15.0-45.0); MEAN PLAT.VOLUME 13.7 uM^3 (9.5-12.4); METAMYELOCYTES 2.5 %; MYELOCYTES 2.5 %; PLAT.SUFFICIENCY DECREASED; PLATELET COUNT 85 K/uL (156-360); SEG.NEUTROPHILS 73.5 % (46.0-76.0)
[2017-09-19 11:32] LABS: POINT-OF-CARE METER ID UU13113774
[2017-09-19 16:22] VITALS: BP 127/60
[2017-09-19 16:23] LABS: POINT-OF-CARE METER ID UU13113725
[2017-09-19 21:18] LABS: POINT-OF-CARE METER ID UU13113725
[2017-09-20 00:14] VITALS: BP 125/60
[2017-09-20 05:38] LABS: POINT-OF-CARE METER ID UU13113774
[2017-09-20 06:33] LABS: ANION GAP 11 MEQ/L (2-14); CHLORIDE 107 MEQ/L (99-109); GFR ESTIMATE (CALCULATED) > 59 mL/min/; GLUCOSE 105 mg/dL (70-99); POTASSIUM 3.8 MEQ/L (3.7-5.4); SAMPLE HEMOLYSIS CHECK 0; SAMPLE ICTERIC CHECK 0; SAMPLE LIPEMIA CHECK 0; SODIUM 146 MEQ/L (136-147); UREA NITROGEN (BUN) 43 mg/dL (9-23)
[2017-09-20 08:03] VITALS: BP 130/62
[2017-09-20 11:12] LABS: MCH 30.6 PG (29.0-34.0); MCHC 32.6 G/DL (30.0-36.0); MCV 93.8 FL (83-99); MEAN PLAT.VOLUME 13.8 uM^3 (9.5-12.4); NRBC (%) 0.1 /100 WBC (0-0); PLATELET COUNT 78 K/uL (156-360); RBC DIS.WIDTH-CV 15.6 % (11.8-14.6); RBC DIS.WIDTH-SD 54.3 % (39-53); RED BLOOD COUNT 2.88 M/uL (3.80-5.20)
[2017-09-20 11:13] LABS: WHITE BLOOD COUNT 46.2 K/uL (4.1-10.2)
[2017-09-20 11:19] LABS: POINT-OF-CARE METER ID UU13113725
[2017-09-20 11:56] LABS: ABS NEUTROPHIL COUNT 38.1; ANISOCYTOSIS 1+; EOSINOPHIL ABS CT 0; HEMATOLOGY COMMENT 1 SMEAR COMPATIBLE; METAMYELOCYTES 6.5 %; MYELOCYTES 4.5 %; PLAT.SUFFICIENCY DECREASED; SCHISTOCYTES 1+; SEG.NEUTROPHILS 71.5 % (46.0-76.0)
[2017-09-20 15:46] VITALS: BP 143/70
[2017-09-20 16:28] LABS: POINT-OF-CARE METER ID UU13113725
[2017-09-20 22:04] LABS: POINT-OF-CARE METER ID UU13113774
[2017-09-20 23:47] VITALS: BP 140/74
[2017-09-21 06:36] LABS: POINT-OF-CARE METER ID UU13113774
[2017-09-21 07:13] VITALS: BP 136/67
[2017-09-21 11:24] LABS: POINT-OF-CARE METER ID UU13113774
[2017-09-21 12:31] LABS: HEMATOCRIT 27.6 % (36.0-46.0); MCH 29.8 PG (29.0-34.0); MCV 90.5 FL (83-99); PLATELET COUNT 83 K/uL (156-360); RBC DIS.WIDTH-CV 15.2 % (11.8-14.6); RBC DIS.WIDTH-SD 50.6 % (39-53); RED BLOOD COUNT 3.05 M/uL (3.80-5.20)
[2017-09-21 12:36] LABS: MEAN PLAT.VOLUME 11.2 uM^3 (9.5-12.4); WHITE BLOOD COUNT 36.4 K/uL (4.1-10.2)
[2017-09-21 13:20] LABS: ABS NEUTROPHIL COUNT 34.3; ANISOCYTOSIS 1+; BAND NEUTROPHILS 5.8 % (0-8.0); EOSINOPHIL ABS CT 0; INSTRUMENT ABS NEUTROPHIL CT 29.2 K/uL; METAMYELOCYTES 0.5 %; MICROCYTOSIS 1+; MYELOCYTES 2.2 %; PLAT.SUFFICIENCY DECREASED; SEG.NEUTROPHILS 88.4 % (46.0-76.0); SMUDGE CELLS 20.1
[2017-09-21] MEDS ORDERED: LOVENOX100 MG/1 M SC ×2 (13:35→15:31)
[2017-09-21] MEDS ORDERED: PREDNISONE20 MG PO ×2 (13:39→14:05)
[2017-09-21] MEDS ORDERED: NOVOLOG PE100 UNITS/ SC (13:42)
[2017-09-21] MEDS ORDERED: LEVEMIR FL100 UNIT/1 SC (13:42)
[2017-09-21] MEDS ORDERED: ZYVOX600 MG PO (13:46)
[2017-09-21] MEDS ORDERED: CIPRO500 MG PO (13:46)
[2017-09-21] MEDS ORDERED: LABETALOL HCL200 MG PO (13:49)
[2017-09-21] MEDS ORDERED: ALLOPURINOL100 MG PO (13:49)
[2017-09-21] MEDS ORDERED: ELIQUIS5 MG PO (13:55)
== END 2017-09-21 17:10 | disposition home health service (06) | DRG 871 ==
LOC: EME 18:06 → 5EAST 20:24 → EDOF 20:24 → 4WEST 20:24 → ENRESERV 20:26 → 4WEST 22:59 → ENRESERV 09-03 16:14 → 5EAST 09-03 19:15 → ENRESERV 09-11 14:54 → CANRESERV 09-11 14:54 → ENRESERV 09-11 14:59 → 4EAST 09-11 16:11 → ENRESERV 09-16 11:20 → 4EAST 09-16 11:20 → ENRESERV 09-16 14:59 → 5EAST 09-16 15:41
PROVIDERS: Emergency Medicine; Hospitalist; Internal Medicine; Internal Medicine Hematology & Oncology; Internal Medicine Medical Oncology; Physician Assistant Medical; Student in an Organized Health Care Education/Training Program
PROC: 30233N1 Transfusion of Nonautologous Red Blood Cells into Peripheral Vein, Percutaneous Approach (ICD-10-PCS; principal; 2017-09-01)
PROC: 0W9930Z Drainage of Right Pleural Cavity with Drainage Device, Percutaneous Approach (ICD-10-PCS; 2017-09-03)
PROC: 3E03305 Introduction of Other Antineoplastic into Peripheral Vein, Percutaneous Approach (ICD-10-PCS; 2017-09-04)
PROC: 0JHD0WZ Insertion of Totally Implantable Vascular Access Device into Right Upper Arm Subcutaneous Tissue and Fascia, Open Approach (ICD-10-PCS; 2017-09-04)
PROC: 05HM33Z Insertion of Infusion Device into Right Internal Jugular Vein, Percutaneous Approach (ICD-10-PCS; 2017-09-04)
PROC: B5131ZA Fluoroscopy of Right Jugular Veins using Low Osmolar Contrast, Guidance (ICD-10-PCS; 2017-09-04)
PROC: 30233R1 Transfusion of Nonautologous Platelets into Peripheral Vein, Percutaneous Approach (ICD-10-PCS; 2017-09-04)
PROC: 30233K1 Transfusion of Nonautologous Frozen Plasma into Peripheral Vein, Percutaneous Approach (ICD-10-PCS; 2017-09-11)
DX: R78.81 Bacteremia (principal); D61.810 Antineoplastic chemotherapy induced pancytopenia; E88.3 Tumor lysis syndrome; J18.9 Pneumonia, unspecified organism; L89.313 Pressure ulcer of right buttock, stage 3; C86.5 Angioimmunoblastic T-cell lymphoma; D61.818 Other pancytopenia; L03.114 Cellulitis of left upper limb; E87.2 Acidosis; K62.5 Hemorrhage of anus and rectum; I82.A12 Acute embolism and thrombosis of left axillary vein; I82.612 Acute embolism and thrombosis of superficial veins of left upper extremity; T80.212A Local infection due to central venous catheter, initial encounter; E87.4 Mixed disorder of acid-base balance; I50.9 Heart failure, unspecified; N25.89 Other disorders resulting from impaired renal tubular function; L89.159 Pressure ulcer of sacral region, unspecified stage; R04.0 Epistaxis; R50.81 Fever presenting with conditions classified elsewhere; B96.89 Other specified bacterial agents as the cause of diseases classified elsewhere; E11.65 Type 2 diabetes mellitus with hyperglycemia; E78.5 Hyperlipidemia, unspecified; E87.6 Hypokalemia; E88.09 Other disorders of plasma-protein metabolism, not elsewhere classified; I11.0 Hypertensive heart disease with heart failure; I87.8 Other specified disorders of veins; T38.0X5A Adverse effect of glucocorticoids and synthetic analogues, initial encounter; L89.312 Pressure ulcer of right buttock, stage 2; L89.320 Pressure ulcer of left buttock, unstageable; L89.212 Pressure ulcer of right hip, stage 2; E66.01 Morbid (severe) obesity due to excess calories; Z79.52 Long term (current) use of systemic steroids; Z79.4 Long term (current) use of insulin; Z90.710 Acquired absence of both cervix and uterus; Z90.49 Acquired absence of other specified parts of digestive tract; Z68.38 Body mass index [BMI] 38.0-38.9, adult
CPT/HCPCS: 36415; 36430; 36600; 71010; 71250; 76942; 80048; 80048 91; 80053; 80069; 80202; 81003; 82272; 82436; 82803; 82945; 82948; 83605; 83615; 83615 91; 83735; 83880; 84100; 84133; 84157; 84300; 84484; 84550; 85025; 85025 91; 85027; 85384; 85610; 85651; 85730; 86022 90; 86850; 86860; 86870; 86880; 86900; 86901; 86905; 86920; 86999; 87040; 87070; 87077; 87086; 87186; 87205; 87641; 87801; 89051; 93005; 93971; 96374; 97530 GO; 97530 GP; 99281; 99285; C1751; C1753; C1894; J0690; J0744; J1100; J1200; J1447; J1644; J1650; J1815; J1940; J2250; J2405; J2469; J2543; J2930; J3010; J3370; J3475; J7030; J7040; J7050; J7120; J7512; J9000; J9070; J9370; P9016; P9017; P9035; P9037; S0020

== ENCOUNTER → 2017-09-01 | Outpatient (CLI) | payer BC ==
[2017-09-01] VITALS (8 sets, daily range): BP systolic 95–140; BP diastolic 52–65
[~2017-09-01] VITALS: Ht 172.7 cm; Wt 101.6 kg
[~2017-09-01] MED LIST changes: +ATIVAN0.5 MG PO; +MAGIC MOUTHWASH PO; +METFORMIN HCL500 M1 PO; +MYCOSTATIN 100,60 ML PO; +OXYCODONE HCL5 MG PO; +PREDNISONE20 MG PO; +ZOFRAN ODT4 MG PO
[2017-09-01 18:07] LABS: MCH 29.3 PG (29.0-34.0); MCHC 34.6 G/DL (30.0-36.0); RBC DIS.WIDTH-CV 16.7 % (11.8-14.6); RBC DIS.WIDTH-SD 48.7 % (39-53); WHITE BLOOD COUNT 2.3 K/uL (4.1-10.2)
[2017-09-01 18:14] LABS: CHLORIDE 103 mEq/L (99-109); POTASSIUM 3.9 mEq/L (3.7-5.4); SODIUM 129 mEq/L (136-147)
[2017-09-01 18:16] LABS: GLUCOSE 172 mg/dL (70-99)
[2017-09-01 18:18] LABS: ANION GAP 8 MEQ/L (2-14); TOTAL BILIRUBIN 1.7 mg/dL (0.0-1.0)
[2017-09-01 18:20] LABS: ALKALINE PHOSPHATASE 56 IU/L (3-129); GFR ESTIMATE (CALCULATED) > 59 mL/min/
[2017-09-01 18:21] LABS: UREA NITROGEN (BUN) 24 mg/dL (9-23)
[2017-09-01 18:27] LABS: TROP-I INTERPRETATION NEGATIVE; TROPONIN-I 0.01 ng/mL (0.0-0.30)
[2017-09-01 18:28] LABS: MCV 84.7 FL (83-99); RED BLOOD COUNT 3.07 M/uL (3.80-5.20)
[2017-09-01 18:55] LABS: ABS NEUTROPHIL COUNT 2.2; ANISOCYTOSIS 1+; BAND NEUTROPHILS 17.7 % (0-8.0); EOSINOPHIL ABS CT 0; GIANT PLATELETS 1+; INSTRUMENT ABS NEUTROPHIL CT 2.1 K/uL; LYMPHOCYTES 0.9 % (15.0-45.0); MEAN PLAT.VOLUME 12.6 uM^3 (9.5-12.4); MICROCYTOSIS 1+; PLAT.SUFFICIENCY VERY DECREASED; SEG.NEUTROPHILS 76.1 % (46.0-76.0); TOX.VACUOLIZATION 1+
[2017-09-01 18:57] LABS: PLATELET COUNT 59 K/uL (156-360)
== END | disposition home or self-care (01) ==
LOC: IVINF 10:00
PROVIDERS: Internal Medicine
DX: C84.40 Peripheral T-cell lymphoma, not elsewhere classified, unspecified site (principal); D64.9 Anemia, unspecified; R50.9 Fever, unspecified; Z88.8 Allergy status to other drugs, medicaments and biological substances
CPT/HCPCS: 36430; 80053; 83605; 84484; 85025; 86880; 86920; 86999; 87040; 96374; J1200; P9016

== ENCOUNTER 2017-09-25 13:51 | Inpatient (IN) | payer BC ==
[~2017-09-25] VITALS: Ht 170.2 cm; Wt 107.4 kg
[2017-09-25] VITALS (21 sets, daily range): BP systolic 89–124; BP diastolic 48–70
[~2017-09-25 13:51] MED LIST changes: +ALLOPURINOL100 MG PO; +ATIVAN0.5 MG PO; +CIPRO500 MG PO; +ELIQUIS5 MG PO; +LABETALOL HCL200 MG PO; +LEVEMIR FL100 UNIT/1 SC; +LOVENOX100 MG/1 M SC; +MAGIC MOUTHWASH PO; +NOVOLOG PE100 UNITS/ SC; +OXYCODONE HCL5 MG PO; +ZOFRAN ODT4 MG PO; +ZYVOX600 MG PO
[2017-09-25 15:08] LABS: HEMATOCRIT 6.3 % (36.0-46.0); MCH 30.4 PG (29.0-34.0); MCHC 33.3 G/DL (30.0-36.0); MCV 91.3 FL (83-99); MEAN PLAT.VOLUME 12.2 uM^3 (9.5-12.4); PLATELET COUNT 68 K/uL (156-360); RBC DIS.WIDTH-CV 15.1 % (11.8-14.6); WHITE BLOOD COUNT 15.2 K/uL (4.1-10.2)
[2017-09-25 15:09] LABS: RED BLOOD COUNT 0.69 M/uL (3.80-5.20)
[2017-09-25 15:19] LABS: INTER. NORMALIZED RATIO 1.2; PROTHROMBIN TIME 13.8 SEC (10.2-12.9)
[2017-09-25 15:24] LABS: TROP-I INTERPRETATION NEGATIVE; TROPONIN-I < 0.01 ng/mL (0.0-0.30)
[2017-09-25 15:25] LABS: CHLORIDE 113 mEq/L (99-109); POTASSIUM 4.2 mEq/L (3.7-5.4); SODIUM 147 mEq/L (136-147)
[2017-09-25 15:26] LABS: GLUCOSE 199 mg/dL (70-99)
[2017-09-25 15:28] LABS: ANION GAP 14 MEQ/L (2-14)
[2017-09-25 15:30] LABS: GFR ESTIMATE (CALCULATED) > 59 mL/min/
[2017-09-25 15:31] LABS: UREA NITROGEN (BUN) 39 mg/dL (9-23)
[2017-09-25 15:48] LABS: PTT 16.6 SEC (25-37)
[2017-09-25 15:49] LABS: EOSINOPHIL (%) 0 % (0-5); IMMATURE GRANULOCYTE (%) 4.5 % (0.0-0.7); IMMATURE GRANULOCYTE COUNT 0.7 K/uL; INSTRUMENT ABS NEUTROPHIL CT 13.6 K/uL; LYMPHOCYTE COUNT 0.5 K/uL (1.0-2.8); MONOCYTE COUNT 0.5 K/uL (0-0.8); NEUTROPHIL (%) 89.3 % (45-76); NEUTROPHIL COUNT 13.6 K/uL (1.8-6.4)
[2017-09-25 19:36] LABS: METH RESISTANT S AUREUS PCR NEGATIVE (NEGATIVE)
[2017-09-25 19:37] LABS: PROBE CHECK PASS; SPECIMEN PROCESSING CONTROL PASS
[2017-09-25 23:23] LABS: INTER. NORMALIZED RATIO 1.3; PROTHROMBIN TIME 14.2 SEC (10.2-12.9)
[2017-09-25 23:26] LABS: PTT 29.2 SEC (25-37)
[2017-09-26] VITALS (46 sets, daily range): BP systolic 0–152; BP diastolic 0–96
[2017-09-26 02:41] LABS: MCV 87.4 FL (83-99)
[2017-09-26 07:15] LABS: HEMATOCRIT 16.1 % (36.0-46.0); MCH 30.9 PG (29.0-34.0); MCV 85.6 FL (83-99); RBC DIS.WIDTH-SD 46.3 % (39-53); WHITE BLOOD COUNT 12.6 K/uL (4.1-10.2)
[2017-09-26 07:16] LABS: RED BLOOD COUNT 1.88 M/uL (3.80-5.20)
[2017-09-26 07:18] LABS: INTER. NORMALIZED RATIO 1.1
[2017-09-26 07:19] LABS: FIBRINOGEN 158 mg/dL (150-450)
[2017-09-26 07:20] LABS: PTT 28.7 SEC (25-37)
[2017-09-26 07:41] LABS: ABS NEUTROPHIL COUNT 11.7; ANISOCYTOSIS 3+; BAND NEUTROPHILS 5.3 % (0-8.0); EOSINOPHIL ABS CT 0; HYPOCHROMASIA 1+; IMM.PLATELET FRACTION 2.5 (1-7); INSTRUMENT ABS NEUTROPHIL CT 11.4 K/uL; LYMPHOCYTES 1.7 % (15.0-45.0); MEAN PLAT.VOLUME 11.3 uM^3 (9.5-12.4); METAMYELOCYTES 3.5 %; MICROCYTOSIS 3+; PLAT.SUFFICIENCY DECREASED; POIKILOCYTOSIS 2+; POLYCHROMASIA 1+; SEG.NEUTROPHILS 87.7 % (46.0-76.0)
[2017-09-26 07:43] LABS: PLATELET COUNT 46 K/uL (156-360)
[2017-09-26 09:25] LABS: ALKALINE PHOSPHATASE 70 IU/L (3-129); ANION GAP 12 MEQ/L (2-14); CHLORIDE 113 MEQ/L (99-109); DIRECT BILIRUBIN 0.3 mg/dL (0.0-0.3); GFR ESTIMATE (CALCULATED) > 59 mL/min/; GLUCOSE 127 mg/dL (70-99); POTASSIUM 3.6 MEQ/L (3.7-5.4); SAMPLE HEMOLYSIS CHECK 0; SAMPLE ICTERIC CHECK 0; SAMPLE LIPEMIA CHECK 0; SODIUM 150 MEQ/L (136-147); TOTAL BILIRUBIN 1.1 MG/DL (0.0-1.0); UREA NITROGEN (BUN) 38 mg/dL (9-23)
[2017-09-26 13:20] LABS: HEMATOCRIT 22.2 % (36.0-46.0); MCV 84.4 FL (83-99)
[2017-09-26 13:47] LABS: POINT-OF-CARE METER ID UU14107333
[2017-09-26 17:08] LABS: ANION GAP 8 MEQ/L (2-14); CHLORIDE 112 MEQ/L (99-109); MAGNESIUM 1.8 mg/dl (1.3-2.7); POTASSIUM 3.4 MEQ/L (3.7-5.4); SAMPLE HEMOLYSIS CHECK 0; SAMPLE ICTERIC CHECK 0; SAMPLE LIPEMIA CHECK 0; SODIUM 146 MEQ/L (136-147)
[2017-09-26 17:21] LABS: GFR ESTIMATE (CALCULATED) > 59 mL/min/; GLUCOSE 123 mg/dL (70-99); UREA NITROGEN (BUN) 34 mg/dL (9-23)
[2017-09-26 18:14] LABS: HEMATOCRIT 21.5 % (36.0-46.0); MCH 31.2 PG (29.0-34.0); MCHC 36.7 G/DL (30.0-36.0); RBC DIS.WIDTH-CV 14.8 % (11.8-14.6); RBC DIS.WIDTH-SD 45.7 % (39-53); WHITE BLOOD COUNT 14.9 K/uL (4.1-10.2)
[2017-09-26 18:37] LABS: IMM.PLATELET FRACTION 2.6 (1-7); MEAN PLAT.VOLUME 10.6 uM^3 (9.5-12.4); PLATELET COUNT 50 K/uL (156-360); RED BLOOD COUNT 2.53 M/uL (3.80-5.20)
[2017-09-26 23:11] LABS: POINT-OF-CARE METER ID UU14314083
[2017-09-27] VITALS (24 sets, daily range): BP systolic 103–154; BP diastolic 57–92
[2017-09-27 02:51] LABS: HEMATOCRIT 24.6 % (36.0-46.0); MCV 84.5 FL (83-99)
[2017-09-27 04:51] LABS: CHLORIDE 110 mEq/L (99-109); POTASSIUM 3.3 mEq/L (3.7-5.4); SODIUM 143 mEq/L (136-147)
[2017-09-27 04:53] LABS: GLUCOSE 102 mg/dL (70-99)
[2017-09-27 04:54] LABS: ANION GAP 10 MEQ/L (2-14)
[2017-09-27 04:56] LABS: GFR ESTIMATE (CALCULATED) > 59 mL/min/
[2017-09-27 04:57] LABS: UREA NITROGEN (BUN) 33 mg/dL (9-23)
[2017-09-27 06:05] LABS: POINT-OF-CARE METER ID UU13113803
[2017-09-27 09:46] LABS: HEMATOCRIT 24.8 % (36.0-46.0); MCH 30.8 PG (29.0-34.0); MCHC 36.3 G/DL (30.0-36.0); MCV 84.9 FL (83-99); RBC DIS.WIDTH-CV 14.9 % (11.8-14.6); RBC DIS.WIDTH-SD 46.1 % (39-53); RED BLOOD COUNT 2.92 M/uL (3.80-5.20)
[2017-09-27 11:59] LABS: POINT-OF-CARE METER ID UU13113803
[2017-09-27 12:14] LABS: IMM.PLATELET FRACTION 2.6 (1-7); MEAN PLAT.VOLUME 10.7 uM^3 (9.5-12.4); PLAT.SUFFICIENCY VERY DECREASED
[2017-09-27 12:28] LABS: PLATELET COUNT 34 K/uL (156-360)
[2017-09-27] MEDS ORDERED: PREDNISONE20 MG PO (14:12)
[2017-09-27] MEDS ORDERED: CYCLOPHOSPHAMIDE (14:14)
[2017-09-27] MEDS ORDERED: VINCRISTINE (14:15)
[2017-09-27] MEDS ORDERED: DOXORUBICIN (14:15)
[2017-09-27] MEDS ORDERED: ESSENTIAL DAIL1 EACH PO (14:16)
[2017-09-27 14:51] LABS: MCH 30.4 PG (29.0-34.0); MCHC 35.6 G/DL (30.0-36.0); MCV 85.3 FL (83-99); RBC DIS.WIDTH-CV 14.7 % (11.8-14.6); RBC DIS.WIDTH-SD 46.1 % (39-53); RED BLOOD COUNT 2.93 M/uL (3.80-5.20); WHITE BLOOD COUNT 11.2 K/uL (4.1-10.2)
[2017-09-27 15:55] LABS: IMM.PLATELET FRACTION 3.7 (1-7); MEAN PLAT.VOLUME 10.6 uM^3 (9.5-12.4)
[2017-09-27 15:57] LABS: PLATELET COUNT 27 K/uL (156-360)
[2017-09-27 17:23] LABS: POINT-OF-CARE METER ID UU13113803
[2017-09-27 21:10] LABS: HEMATOCRIT 25.3 % (36.0-46.0); MCHC 35.2 G/DL (30.0-36.0); MCV 85.2 FL (83-99); RBC DIS.WIDTH-CV 14.7 % (11.8-14.6); RBC DIS.WIDTH-SD 45.6 % (39-53); RED BLOOD COUNT 2.97 M/uL (3.80-5.20); WHITE BLOOD COUNT 10.6 K/uL (4.1-10.2)
[2017-09-27 21:50] LABS: IMM.PLATELET FRACTION 3.2 (1-7); PLAT.SUFFICIENCY VERY DECREASED
[2017-09-27 21:57] LABS: PLATELET COUNT 27 K/uL (156-360)
[2017-09-27 23:01] LABS: POINT-OF-CARE METER ID UU13113803
[2017-09-28] VITALS (20 sets, daily range): BP systolic 114–155; BP diastolic 58–94
[2017-09-28 06:07] LABS: EOSINOPHIL (%) 0 % (0-5); HEMATOCRIT 25.3 % (36.0-46.0); IMMATURE GRANULOCYTE (%) 1.9 % (0.0-0.7); IMMATURE GRANULOCYTE COUNT 0.2 K/uL; INSTRUMENT ABS NEUTROPHIL CT 8.9 K/uL; LYMPHOCYTE COUNT 0.1 K/uL (1.0-2.8); MCH 30.2 PG (29.0-34.0); MCHC 34.8 G/DL (30.0-36.0); MCV 86.9 FL (83-99); MONOCYTE (%) 3.7 % (3-12); MONOCYTE COUNT 0.4 K/uL (0-0.8); NEUTROPHIL (%) 92.9 % (45-76); NEUTROPHIL COUNT 8.9 K/uL (1.8-6.4); RBC DIS.WIDTH-SD 47.8 % (39-53); RED BLOOD COUNT 2.91 M/uL (3.80-5.20); WHITE BLOOD COUNT 9.6 K/uL (4.1-10.2)
[2017-09-28 06:38] LABS: ANION GAP 8 MEQ/L (2-14); CHLORIDE 112 MEQ/L (99-109); GFR ESTIMATE (CALCULATED) > 59 mL/min/; GLUCOSE 86 mg/dL (70-99); POTASSIUM 3.2 MEQ/L (3.7-5.4); SAMPLE HEMOLYSIS CHECK 0; SAMPLE ICTERIC CHECK 0; SAMPLE LIPEMIA CHECK 0; SODIUM 144 MEQ/L (136-147); UREA NITROGEN (BUN) 27 mg/dL (9-23)
[2017-09-28 07:14] LABS: PLAT.SUFFICIENCY VERY DECREASED
[2017-09-28 08:49] LABS: MEAN PLAT.VOLUME 12.2 uM^3 (9.5-12.4); PLATELET COUNT 25 K/uL (156-360)
[2017-09-28 09:44] LABS: MCH 30.1 PG (29.0-34.0); MCHC 34.8 G/DL (30.0-36.0); MCV 86.5 FL (83-99); RBC DIS.WIDTH-CV 14.9 % (11.8-14.6); RBC DIS.WIDTH-SD 47.1 % (39-53); RED BLOOD COUNT 2.89 M/uL (3.80-5.20); WHITE BLOOD COUNT 9.9 K/uL (4.1-10.2)
[2017-09-28 10:12] LABS: PLAT.SUFFICIENCY VERY DECREASED
[2017-09-28 11:05] LABS: PLATELET COUNT 20 K/uL (156-360)
[2017-09-28 12:18] LABS: POINT-OF-CARE METER ID UU14174217
[2017-09-28 15:06] LABS: HEMATOCRIT 25.2 % (36.0-46.0); MCH 30.6 PG (29.0-34.0); MCHC 34.9 G/DL (30.0-36.0); MCV 87.5 FL (83-99); RBC DIS.WIDTH-CV 14.9 % (11.8-14.6); RBC DIS.WIDTH-SD 47.8 % (39-53); RED BLOOD COUNT 2.88 M/uL (3.80-5.20); WHITE BLOOD COUNT 9.7 K/uL (4.1-10.2)
[2017-09-28 15:38] LABS: IMM.PLATELET FRACTION 3.8 (1-7); MEAN PLAT.VOLUME 11.2 uM^3 (9.5-12.4); PLAT.SUFFICIENCY VERY DECREASED
[2017-09-28 15:50] LABS: PLATELET COUNT 20 K/uL (156-360)
[2017-09-28 16:31] LABS: POINT-OF-CARE METER ID UU14174217
[2017-09-28 22:15] LABS: POINT-OF-CARE METER ID UU14162636
[2017-09-28 23:13] LABS: HEMATOCRIT 24.3 % (36.0-46.0); MCH 30.4 PG (29.0-34.0); MCV 86.8 FL (83-99); RBC DIS.WIDTH-CV 14.6 % (11.8-14.6); RBC DIS.WIDTH-SD 46.7 % (39-53); WHITE BLOOD COUNT 9.2 K/uL (4.1-10.2)
[2017-09-29] VITALS (9 sets, daily range): BP systolic 134–161; BP diastolic 72–90
[2017-09-29 00:35] LABS: IMM.PLATELET FRACTION 5.9 (1-7); MEAN PLAT.VOLUME 11.2 uM^3 (9.5-12.4); PLAT.SUFFICIENCY VERY DECREASED; PLATELET COUNT 22 K/uL (156-360)
[2017-09-29 06:54] LABS: POINT-OF-CARE METER ID UU14208750
[2017-09-29 10:55] LABS: HEMATOCRIT 25.5 % (36.0-46.0); MCH 30.4 PG (29.0-34.0); MCHC 34.5 G/DL (30.0-36.0); MCV 88.2 FL (83-99); RBC DIS.WIDTH-CV 14.6 % (11.8-14.6); RBC DIS.WIDTH-SD 47.8 % (39-53); RED BLOOD COUNT 2.89 M/uL (3.80-5.20); WHITE BLOOD COUNT 6.9 K/uL (4.1-10.2)
[2017-09-29 11:25] LABS: ANION GAP 7 MEQ/L (2-14); CHLORIDE 111 MEQ/L (99-109); GFR ESTIMATE (CALCULATED) > 59 mL/min/; GLUCOSE 105 mg/dL (70-99); POTASSIUM 3.7 MEQ/L (3.7-5.4); SAMPLE HEMOLYSIS CHECK 0; SAMPLE ICTERIC CHECK 0; SAMPLE LIPEMIA CHECK 0; SODIUM 141 MEQ/L (136-147); UREA NITROGEN (BUN) 23 mg/dL (9-23)
[2017-09-29 11:36] LABS: IMM.PLATELET FRACTION 5.5 (1-7); MEAN PLAT.VOLUME 12.4 uM^3 (9.5-12.4); PLAT.SUFFICIENCY VERY DECREASED
[2017-09-29 11:53] LABS: PLATELET COUNT 17 K/uL (156-360)
[2017-09-29 16:43] LABS: PLATELET COUNT 24 K/uL (156-360)
[2017-09-29 17:00] LABS: POINT-OF-CARE METER ID UU14208750
[2017-09-29 18:10] LABS: HEMATOCRIT 24.3 % (36.0-46.0); MCV 87.4 FL (83-99)
[2017-09-29 21:31] LABS: POINT-OF-CARE METER ID UU14314084
[2017-09-30 03:37] VITALS: BP 140/68
[2017-09-30 06:54] LABS: POINT-OF-CARE METER ID UU14314084
[2017-09-30 07:21] LABS: HEMATOCRIT 24.2 % (36.0-46.0); MCH 30.1 PG (29.0-34.0); MCHC 33.9 G/DL (30.0-36.0); RBC DIS.WIDTH-CV 14.7 % (11.8-14.6); RBC DIS.WIDTH-SD 47.5 % (39-53); RED BLOOD COUNT 2.72 M/uL (3.80-5.20); WHITE BLOOD COUNT 5.3 K/uL (4.1-10.2)
[2017-09-30 07:42] LABS: ANION GAP 8 MEQ/L (2-14); CHLORIDE 112 MEQ/L (99-109); GFR ESTIMATE (CALCULATED) > 59 mL/min/; GLUCOSE 90 mg/dL (70-99); POTASSIUM 3.7 MEQ/L (3.7-5.4); SAMPLE HEMOLYSIS CHECK 0; SAMPLE ICTERIC CHECK 0; SAMPLE LIPEMIA CHECK 0; SODIUM 142 MEQ/L (136-147); UREA NITROGEN (BUN) 24 mg/dL (9-23)
[2017-09-30 07:44] VITALS: BP 158/85
[2017-09-30 07:50] LABS: HEMATOLOGY COMMENT 1 SMEAR COMPATIBLE; MEAN PLAT.VOLUME 12.2 uM^3 (9.5-12.4); PLAT.SUFFICIENCY VERY DECREASED
[2017-09-30 07:55] LABS: PLATELET COUNT 20 K/uL (156-360)
[2017-09-30 11:57] LABS: POINT-OF-CARE METER ID UU14208750
[2017-09-30 15:55] VITALS: BP 168/90
[2017-09-30 16:20] LABS: POINT-OF-CARE METER ID UU14162508
[2017-09-30 21:40] LABS: POINT-OF-CARE METER ID UU14208750
[2017-09-30 23:38] VITALS: BP 154/83
[2017-10-01 06:57] LABS: POINT-OF-CARE METER ID UU14162508
[2017-10-01 07:04] VITALS: BP 164/77
[2017-10-01 08:56] LABS: EOSINOPHIL (%) 0 % (0-5); HEMATOCRIT 24.9 % (36.0-46.0); IMMATURE GRANULOCYTE (%) 1.6 % (0.0-0.7); IMMATURE GRANULOCYTE COUNT 0.1 K/uL; INSTRUMENT ABS NEUTROPHIL CT 4.6 K/uL; LYMPHOCYTE COUNT 0.2 K/uL (1.0-2.8); MCH 29.5 PG (29.0-34.0); MCHC 32.9 G/DL (30.0-36.0); MCV 89.6 FL (83-99); MONOCYTE (%) 4.9 % (3-12); MONOCYTE COUNT 0.3 K/uL (0-0.8); NEUTROPHIL (%) 89.4 % (45-76); NEUTROPHIL COUNT 4.6 K/uL (1.8-6.4); RBC DIS.WIDTH-CV 14.4 % (11.8-14.6); RBC DIS.WIDTH-SD 46.9 % (39-53); RED BLOOD COUNT 2.78 M/uL (3.80-5.20); WHITE BLOOD COUNT 5.1 K/uL (4.1-10.2)
[2017-10-01 09:30] LABS: IMM.PLATELET FRACTION 3.9 (1-7); MEAN PLAT.VOLUME 10.4 uM^3 (9.5-12.4)
[2017-10-01 09:31] LABS: PLATELET COUNT 25 K/uL (156-360)
[2017-10-01 09:34] LABS: ANION GAP 9 MEQ/L (2-14); CHLORIDE 110 MEQ/L (99-109); GFR ESTIMATE (CALCULATED) > 59 mL/min/; GLUCOSE 80 mg/dL (70-99); POTASSIUM 3.2 MEQ/L (3.7-5.4); SAMPLE HEMOLYSIS CHECK 0; SAMPLE ICTERIC CHECK 0; SAMPLE LIPEMIA CHECK 0; SODIUM 141 MEQ/L (136-147); UREA NITROGEN (BUN) 23 mg/dL (9-23)
[2017-10-01 11:51] LABS: POINT-OF-CARE METER ID UU14314084
[2017-10-01 16:00] VITALS: BP 153/84
[2017-10-01 17:20] LABS: POINT-OF-CARE METER ID UU14162508
[2017-10-01 21:32] LABS: POINT-OF-CARE METER ID UU14314084
[2017-10-02 00:02] VITALS: BP 164/83
[2017-10-02 06:29] LABS: POINT-OF-CARE METER ID UU14208750
[2017-10-02 07:37] LABS: EOSINOPHIL (%) 0 % (0-5); HEMATOCRIT 22.9 % (36.0-46.0); IMMATURE GRANULOCYTE (%) 1.6 % (0.0-0.7); IMMATURE GRANULOCYTE COUNT 0.1 K/uL; INSTRUMENT ABS NEUTROPHIL CT 4.3 K/uL; LYMPHOCYTE COUNT 0.2 K/uL (1.0-2.8); MCH 29.5 PG (29.0-34.0); MCHC 32.8 G/DL (30.0-36.0); MCV 90.2 FL (83-99); MONOCYTE (%) 6.3 % (3-12); MONOCYTE COUNT 0.3 K/uL (0-0.8); NEUTROPHIL (%) 88.2 % (45-76); NEUTROPHIL COUNT 4.3 K/uL (1.8-6.4); RBC DIS.WIDTH-CV 14.6 % (11.8-14.6); RBC DIS.WIDTH-SD 47.7 % (39-53); RED BLOOD COUNT 2.54 M/uL (3.80-5.20); WHITE BLOOD COUNT 4.9 K/uL (4.1-10.2)
[2017-10-02 07:59] LABS: ANION GAP 7 MEQ/L (2-14); CHLORIDE 113 MEQ/L (99-109); GFR ESTIMATE (CALCULATED) > 59 mL/min/; GLUCOSE 87 mg/dL (70-99); MAGNESIUM 1.8 mg/dl (1.3-2.7); SAMPLE HEMOLYSIS CHECK 0; SAMPLE ICTERIC CHECK 0; SAMPLE LIPEMIA CHECK 0; SODIUM 143 MEQ/L (136-147); UREA NITROGEN (BUN) 22 mg/dL (9-23)
[2017-10-02 08:10] LABS: IMM.PLATELET FRACTION 3.8 (1-7); MEAN PLAT.VOLUME 11.7 uM^3 (9.5-12.4); PLATELET COUNT 32 K/uL (156-360); POTASSIUM 3.9 MEQ/L (3.7-5.4)
[2017-10-02 08:17] VITALS: BP 176/88
[2017-10-02 12:27] LABS: POINT-OF-CARE METER ID UU14162508
[2017-10-02 15:56] VITALS: BP 157/76
[2017-10-02 16:44] LABS: POINT-OF-CARE METER ID UU14162508
[2017-10-02 21:31] LABS: POINT-OF-CARE METER ID UU14208750
[2017-10-02 23:38] VITALS: BP 166/85
[2017-10-03 06:47] LABS: POINT-OF-CARE METER ID UU14314084
[2017-10-03 07:02] LABS: EOSINOPHIL (%) 0 % (0-5); HEMATOCRIT 21.9 % (36.0-46.0); IMMATURE GRANULOCYTE (%) 1.7 % (0.0-0.7); IMMATURE GRANULOCYTE COUNT 0.1 K/uL; INSTRUMENT ABS NEUTROPHIL CT 4.1 K/uL; LYMPHOCYTE COUNT 0.2 K/uL (1.0-2.8); MCH 31.1 PG (29.0-34.0); MCHC 34.2 G/DL (30.0-36.0); MCV 90.9 FL (83-99); MONOCYTE (%) 5.8 % (3-12); MONOCYTE COUNT 0.3 K/uL (0-0.8); NEUTROPHIL (%) 88.6 % (45-76); NEUTROPHIL COUNT 4.1 K/uL (1.8-6.4); RBC DIS.WIDTH-CV 14.7 % (11.8-14.6); RBC DIS.WIDTH-SD 48.9 % (39-53); RED BLOOD COUNT 2.41 M/uL (3.80-5.20); WHITE BLOOD COUNT 4.7 K/uL (4.1-10.2)
[2017-10-03 07:35] VITALS: BP 176/82
[2017-10-03 07:46] LABS: MEAN PLAT.VOLUME 11.1 uM^3 (9.5-12.4); PLAT.SUFFICIENCY DECREASED; PLATELET COUNT 35 K/uL (156-360)
[2017-10-03] MEDS ORDERED: LABETALOL HCL100 MG PO (10:33)
[2017-10-03 12:25] LABS: POINT-OF-CARE METER ID UU14162508
== END 2017-10-03 15:15 | disposition home health service (06) | DRG 811 ==
LOC: EME 13:51 → 4WEST 16:43 → EDOF 16:43 → ENRESERV 16:59 → 4WEST 17:39 → ENRESERV 09-28 15:05 → 2EAST 09-29 02:13
PROVIDERS: Emergency Medicine; Hospitalist; Internal Medicine; Internal Medicine Critical Care Medicine; Internal Medicine Hematology & Oncology; Internal Medicine Medical Oncology; Physician Assistant; Surgery; Thoracic Surgery (Cardiothoracic Vascular Surgery)
DX: D62 Acute posthemorrhagic anemia (principal); K92.2 Gastrointestinal hemorrhage, unspecified; K63.3 Ulcer of intestine; I82.619 Acute embolism and thrombosis of superficial veins of unspecified upper extremity; C86.5 Angioimmunoblastic T-cell lymphoma; R57.1 Hypovolemic shock; L89.323 Pressure ulcer of left buttock, stage 3; L03.114 Cellulitis of left upper limb; R78.81 Bacteremia; J90 Pleural effusion, not elsewhere classified; E11.65 Type 2 diabetes mellitus with hyperglycemia; I10 Essential (primary) hypertension; D61.818 Other pancytopenia; E78.5 Hyperlipidemia, unspecified; T45.1X5A Adverse effect of antineoplastic and immunosuppressive drugs, initial encounter; D69.59 Other secondary thrombocytopenia; R59.1 Generalized enlarged lymph nodes; R65.10 Systemic inflammatory response syndrome (SIRS) of non-infectious origin without acute organ dysfunction; I47.1 Supraventricular tachycardia; J98.11 Atelectasis; B36.9 Superficial mycosis, unspecified; L89.212 Pressure ulcer of right hip, stage 2; L89.313 Pressure ulcer of right buttock, stage 3; S30.821A Blister (nonthermal) of abdominal wall, initial encounter; I82.622 Acute embolism and thrombosis of deep veins of left upper extremity; T14.90XA Injury, unspecified, initial encounter; B96.89 Other specified bacterial agents as the cause of diseases classified elsewhere; E66.01 Morbid (severe) obesity due to excess calories; W19.XXXA Unspecified fall, initial encounter; Z91.81 History of falling; Z90.49 Acquired absence of other specified parts of digestive tract; Z68.35 Body mass index [BMI] 35.0-35.9, adult; Y92.009 Unspecified place in unspecified non-institutional (private) residence as the place of occurrence of the external cause; Z86.718 Personal history of other venous thrombosis and embolism
CPT/HCPCS: 71010; 74177; 80048; 80048 91; 80076; 82272; 82948; 83605; 83735; 84100; 84484; 85014; 85018; 85025; 85027; 85049; 85384; 85610; 85730; 86850; 86900; 86901; 86905; 86920; 87641; 93005; 93970; 97530 GO; 97530 GP; 99281; 99285; A6212; C1751; J1720; J1756; J1815; J3480; J7030; J7050; J7512; P9016; P9017; P9035; P9037; S0028

== ENCOUNTER 2017-10-19 08:01 | Day surgery (SDC) | payer BC ==
[~2017-10-19 08:01] MED LIST changes: +CYCLOPHOSPHAMIDE; +DOXORUBICIN; +ESSENTIAL DAIL1 EACH PO; +K-DUR20 MEQ PO; +LABETALOL HCL100 MG PO; +VINCRISTINE
== END 2017-10-19 10:45 | disposition home or self-care (01) ==
LOC: CATH 08:01
PROVIDERS: Surgery
PROC: B5181ZA Fluoroscopy of Superior Vena Cava using Low Osmolar Contrast, Guidance (ICD-10-PCS; principal; 2017-10-19)
PROC: 02HV33Z Insertion of Infusion Device into Superior Vena Cava, Percutaneous Approach (ICD-10-PCS; principal; 2017-10-19)
PROC: 3E03317 Introduction of Other Thrombolytic into Peripheral Vein, Percutaneous Approach (ICD-10-PCS; principal; 2017-10-19)
DX: Z45.2 Encounter for adjustment and management of vascular access device (principal); I87.8 Other specified disorders of veins; C86.5 Angioimmunoblastic T-cell lymphoma; T81.89XA Other complications of procedures, not elsewhere classified, initial encounter; I10 Essential (primary) hypertension; E11.9 Type 2 diabetes mellitus without complications; E78.00 Pure hypercholesterolemia, unspecified; Z86.718 Personal history of other venous thrombosis and embolism; Z79.4 Long term (current) use of insulin
CPT/HCPCS: 82948; C1751; C1894; J0690; J1644; J2250; J3010; S0020

== ENCOUNTER 2017-11-19 16:42 | Emergency (ER) | payer BC ==
[~2017-11-19] VITALS: Ht 170.2 cm; Wt 88.2 kg
[2017-11-19 18:18] LABS: HEMATOCRIT 23.2 % (36.0-46.0); HEMOGLOBIN 7.6 G/DL (11.9-15.5); MCH 32.3 PG (29.0-34.0); MCHC 32.8 G/DL (30.0-36.0); MCV 98.7 FL (83-99); NRBC (%) 0.6 /100 WBC (0-0); PLATELET COUNT 176 K/uL (156-360); RBC DIS.WIDTH-CV 21.3 % (11.8-14.6); RBC DIS.WIDTH-SD 74.7 % (39-53); RED BLOOD COUNT 2.35 M/uL (3.80-5.20); WHITE BLOOD COUNT 12.5 K/uL (4.1-10.2)
[2017-11-19 18:23] LABS: INTER. NORMALIZED RATIO 1.3
[2017-11-19 18:26] LABS: CHLORIDE 105 mEq/L (99-109); POTASSIUM 3.8 mEq/L (3.7-5.4); PTT 29.3 SEC (25-37); SODIUM 142 mEq/L (136-147)
[2017-11-19 18:27] LABS: GLUCOSE 126 mg/dL (70-99)
[2017-11-19 18:31] LABS: CREATININE 0.6 mg/dL (0.6-1.3); GFR ESTIMATE (CALCULATED) > 59 mL/min/
[2017-11-19 18:32] LABS: UREA NITROGEN (BUN) 12 mg/dL (9-23)
[2017-11-19 19:02] LABS: ABS NEUTROPHIL COUNT 11.2; ANISOCYTOSIS 2+; BAND NEUTROPHILS 13.9 % (0-8.0); BASOPH.STIPPLING 1+; EOSINOPHIL ABS CT 0; LYMPHOCYTES 4.4 % (15.0-45.0); METAMYELOCYTES 1.7 %; MICROCYTOSIS 2+; MONOCYTES 2.6 % (0-9.0); MYELOCYTES 1.7 %; OVALOCYTES 1+; PLAT.SUFFICIENCY ADEQUATE; POIKILOCYTOSIS 1+; POLYCHROMASIA 1+; SEG.NEUTROPHILS 75.7 % (46.0-76.0); TEAR DROP CELLS 1+
[2017-11-19 21:14] VITALS: BP 158/77
[2017-11-20] MEDS ORDERED: K-DUR20 MEQ PO (13:37)
[2017-11-20] MEDS ORDERED: GLUCOPHAGE500 MG PO (13:39)
[2017-11-20] MEDS ORDERED: PREDNISONE20 MG PO (13:39)
[2017-11-22] MEDS ORDERED: LEVAQUIN750 MG PO (13:14)
== END 2017-11-19 21:17 | disposition home or self-care (01) ==
LOC: EME 16:42
PROVIDERS: Nurse Practitioner Family
DX: L03.114 Cellulitis of left upper limb (principal); Z85.72 Personal history of non-Hodgkin lymphomas; Z92.21 Personal history of antineoplastic chemotherapy; Z90.49 Acquired absence of other specified parts of digestive tract; Z88.8 Allergy status to other drugs, medicaments and biological substances
CPT/HCPCS: 80048; 85025; 85610; 85730; 87040; 93971; 99281; 99284; J0696

== ENCOUNTER 2018-04-08 09:01 | Inpatient (IN) | payer BC ==
[~2018-04-08] VITALS: Ht 170.2 cm; Wt 95.2 kg
[~2018-04-08 09:01] MED LIST changes: +GLUCOPHAGE500 MG PO; +LEVAQUIN750 MG PO; +PREDNISONE2.5 MG PO; +VALACYCLOVIR500 MG PO
[2018-04-08 15:12] VITALS: BP 118/74
[2018-04-08 16:15] LABS: HEMATOCRIT 24.5 % (36.0-46.0); HEMOGLOBIN 7.8 G/DL (11.9-15.5); MCH 31.3 PG (29.0-34.0); MCHC 31.8 G/DL (30.0-36.0); MCV 98.4 FL (83-99); PLATELET COUNT 109 K/uL (156-360); RBC DIS.WIDTH-CV 16.2 % (11.8-14.6); RBC DIS.WIDTH-SD 58.3 % (39-53); RED BLOOD COUNT 2.49 M/uL (3.80-5.20); WHITE BLOOD COUNT 2.4 K/uL (4.1-10.2)
[2018-04-08 16:27] LABS: CHLORIDE 107 MEQ/L (99-109); POTASSIUM 4.3 MEQ/L (3.7-5.4); SODIUM 139 MEQ/L (136-147)
[2018-04-08 16:32] LABS: GFR ESTIMATE (CALCULATED) > 59 mL/min/; GLUCOSE 122 mg/dL (70-99); UREA NITROGEN (BUN) 19 mg/dL (9-23)
[2018-04-08] MEDS ORDERED: ATOVAQUONE750 MG/5 M PO (16:57)
[2018-04-08 20:25] VITALS: BP 130/90
[2018-04-09 00:57] VITALS: BP 147/69
[2018-04-09 05:58] LABS: HEMATOCRIT 23.2 % (36.0-46.0); HEMOGLOBIN 7.2 G/DL (11.9-15.5); PLATELET COUNT 104 K/uL (156-360); RBC DIS.WIDTH-CV 16.4 % (11.8-14.6); RBC DIS.WIDTH-SD 59.3 % (39-53); RED BLOOD COUNT 2.32 M/uL (3.80-5.20); WHITE BLOOD COUNT 2.2 K/uL (4.1-10.2)
[2018-04-09 07:42] VITALS: BP 131/63
[2018-04-09 15:26] VITALS: BP 141/65
[2018-04-09 21:06] VITALS: BP 142/74
[2018-04-10] VITALS (7 sets, daily range): BP systolic 128–177; BP diastolic 60–79
[2018-04-10 06:37] LABS: BASOPHIL (%) 1.2 % (0-1); EOSINOPHIL COUNT 0.1 K/uL (0-0.3); IMMATURE GRANULOCYTE (%) 0.6 % (0.0-0.7); LYMPHOCYTE (%) 16.8 % (15-42); LYMPHOCYTE COUNT 0.3 K/uL (1.0-2.8); MCHC 30.4 G/DL (30.0-36.0); MCV 98.7 FL (83-99); MONOCYTE (%) 14.5 % (3-12); MONOCYTE COUNT 0.3 K/uL (0-0.8); NEUTROPHIL (%) 62.9 % (45-76); NEUTROPHIL COUNT 1.1 K/uL (1.8-6.4); PLATELET COUNT 113 K/uL (156-360); RBC DIS.WIDTH-CV 16.2 % (11.8-14.6); RBC DIS.WIDTH-SD 58.6 % (39-53); RED BLOOD COUNT 2.33 M/uL (3.80-5.20)
[2018-04-10 06:46] LABS: WHITE BLOOD COUNT 1.7 K/uL (4.1-10.2)
[2018-04-10 06:55] LABS: CHLORIDE 113 MEQ/L (99-109); CREATININE 0.9 MG/DL (0.6-1.3); GFR ESTIMATE (CALCULATED) > 59 mL/min/; GLUCOSE 101 mg/dL (70-99); POTASSIUM 4.2 MEQ/L (3.7-5.4); UREA NITROGEN (BUN) 14 mg/dL (9-23)
[2018-04-10 07:00] LABS: SODIUM 146 MEQ/L (136-147)
[2018-04-11 00:24] VITALS: BP 166/82
[2018-04-11 02:10] VITALS: BP 184/72
[2018-04-11 03:16] VITALS: BP 158/68
[2018-04-11 06:33] LABS: CHLORIDE 110 MEQ/L (99-109); CREATININE 0.7 MG/DL (0.6-1.3); GFR ESTIMATE (CALCULATED) > 59 mL/min/; POTASSIUM 4.1 MEQ/L (3.7-5.4); SODIUM 139 MEQ/L (136-147); UREA NITROGEN (BUN) 16 mg/dL (9-23)
[2018-04-11 06:40] LABS: GLUCOSE 189 mg/dL (70-99)
[2018-04-11 06:49] LABS: BASOPHIL (%) 0.5 % (0-1); EOSINOPHIL (%) 0.5 % (0-5); HEMATOCRIT 29.2 % (36.0-46.0); LYMPHOCYTE (%) 9.6 % (15-42); LYMPHOCYTE COUNT 0.2 K/uL (1.0-2.8); MCHC 31.5 G/DL (30.0-36.0); MCV 95.1 FL (83-99); MONOCYTE (%) 5.8 % (3-12); MONOCYTE COUNT 0.1 K/uL (0-0.8); NEUTROPHIL (%) 82.6 % (45-76); NEUTROPHIL COUNT 1.7 K/uL (1.8-6.4); PLATELET COUNT 111 K/uL (156-360); RBC DIS.WIDTH-CV 16.2 % (11.8-14.6); RBC DIS.WIDTH-SD 56.5 % (39-53); WHITE BLOOD COUNT 2.1 K/uL (4.1-10.2)
[2018-04-11 06:56] LABS: HEMOGLOBIN 9.2 G/DL (11.9-15.5); RED BLOOD COUNT 3.07 M/uL (3.80-5.20)
[2018-04-11 07:25] VITALS: BP 165/78
[2018-04-11 15:40] VITALS: BP 114/67
[2018-04-11 23:31] VITALS: BP 173/81
[2018-04-12 06:31] LABS: BASOPHIL (%) 0 % (0-1); EOSINOPHIL (%) 0.8 % (0-5); HEMATOCRIT 28.5 % (36.0-46.0); HEMOGLOBIN 8.9 G/DL (11.9-15.5); IMMATURE GRANULOCYTE (%) 1.3 % (0.0-0.7); LYMPHOCYTE (%) 4.6 % (15-42); LYMPHOCYTE COUNT 0.1 K/uL (1.0-2.8); MCH 30.1 PG (29.0-34.0); MCHC 31.2 G/DL (30.0-36.0); MCV 96.3 FL (83-99); MONOCYTE (%) 1.7 % (3-12); NEUTROPHIL (%) 91.6 % (45-76); NEUTROPHIL COUNT 2.2 K/uL (1.8-6.4); PLATELET COUNT 135 K/uL (156-360); RBC DIS.WIDTH-CV 16.8 % (11.8-14.6); RBC DIS.WIDTH-SD 59.1 % (39-53); RED BLOOD COUNT 2.96 M/uL (3.80-5.20); WHITE BLOOD COUNT 2.4 K/uL (4.1-10.2)
[2018-04-12 07:02] VITALS: BP 159/77
[2018-04-12 07:26] LABS: CHLORIDE 114 MEQ/L (99-109); CREATININE 0.7 MG/DL (0.6-1.3); GFR ESTIMATE (CALCULATED) > 59 mL/min/; POTASSIUM 4.2 MEQ/L (3.7-5.4); SODIUM 142 MEQ/L (136-147); UREA NITROGEN (BUN) 18 mg/dL (9-23)
[2018-04-12 07:29] LABS: GLUCOSE 114 mg/dL (70-99)
[2018-04-12] MEDS ORDERED: LEVOFLOXACIN500 MG PO (11:36)
== END 2018-04-12 14:25 | disposition home or self-care (01) | DRG 846 ==
LOC: 5EAST 09:01 → ENRESERV 09:02 → 5EAST 14:51
PROVIDERS: Physician Assistant; Student in an Organized Health Care Education/Training Program
PROC: 3E04305 Introduction of Other Antineoplastic into Central Vein, Percutaneous Approach (ICD-10-PCS; principal; 2018-04-09)
PROC: 30233N1 Transfusion of Nonautologous Red Blood Cells into Peripheral Vein, Percutaneous Approach (ICD-10-PCS; 2018-04-10)
DX: Z51.11 Encounter for antineoplastic chemotherapy (principal); C86.5 Angioimmunoblastic T-cell lymphoma; D61.810 Antineoplastic chemotherapy induced pancytopenia; T45.1X5A Adverse effect of antineoplastic and immunosuppressive drugs, initial encounter; R50.81 Fever presenting with conditions classified elsewhere; K13.79 Other lesions of oral mucosa; E11.9 Type 2 diabetes mellitus without complications; I10 Essential (primary) hypertension; E78.5 Hyperlipidemia, unspecified; Z90.710 Acquired absence of both cervix and uterus; Z86.718 Personal history of other venous thrombosis and embolism; Z79.4 Long term (current) use of insulin
CPT/HCPCS: 80048; 82948; 85025; 85027; 86850; 86900; 86901; 86920; C9463; J1100; J2469; J7030; J7050; J7512; J9045; J9181; J9208; J9209; P9016; Q0164

== ENCOUNTER 2018-04-20 22:33 | Inpatient (IN) | payer BC ==
[~2018-04-20] VITALS: Ht 172.7 cm; Wt 96.2 kg
[~2018-04-20 22:33] MED LIST changes: +ATOVAQUONE750 MG/5 M PO; +GLUCOPHAGE XR,500 MG PO; -GLUCOPHAGE500 MG PO; +LEVOFLOXACIN500 MG PO
[2018-04-20 23:45] LABS: HEMOGLOBIN 7.7 G/DL (11.9-15.5); MCH 29.8 PG (29.0-34.0); MCHC 33.5 G/DL (30.0-36.0); MCV 89.1 FL (83-99); RBC DIS.WIDTH-CV 15.8 % (11.8-14.6); RBC DIS.WIDTH-SD 51.8 % (39-53); RED BLOOD COUNT 2.58 M/uL (3.80-5.20); WHITE BLOOD COUNT 0.1 K/uL (4.1-10.2)
[2018-04-20 23:48] LABS: ALBUMIN 3.9 g/dL (3.2-4.8); CHLORIDE 105 mEq/L (99-109); POTASSIUM 3.8 mEq/L (3.7-5.4); SODIUM 139 mEq/L (136-147)
[2018-04-20 23:50] LABS: GLUCOSE 111 mg/dL (70-99)
[2018-04-20 23:52] LABS: TOTAL BILIRUBIN 0.3 mg/dL (0.0-1.0)
[2018-04-20 23:54] LABS: ALKALINE PHOSPHATASE 84 IU/L (3-129); CREATININE 0.8 mg/dL (0.6-1.3); GFR ESTIMATE (CALCULATED) > 59 mL/min/
[2018-04-20 23:55] LABS: UREA NITROGEN (BUN) 11 mg/dL (9-23)
[2018-04-20 23:56] LABS: AST (GOT) 21 IU/L (2-34)
[2018-04-20 23:57] LABS: ALT (GPT) 33 IU/L (3-49)
[2018-04-21] VITALS (13 sets, daily range): BP systolic 98–157; BP diastolic 50–72
[2018-04-21] MEDS ORDERED: LEVAQUIN500 MG PO (01:33)
[2018-04-21] MEDS ORDERED: LOPERAMIDE2 MG PO (01:35)
[2018-04-21] MEDS ORDERED: NEULASTA6 MG/0.6 M SC (01:35)
[2018-04-21] MEDS ORDERED: CLARITIN,ALAVAR10 MG PO (01:35)
[2018-04-21 03:32] LABS: ABS NEUTROPHIL COUNT 0.1; EOSINOPHIL ABS CT 0; IMM.PLATELET FRACTION 1.8 (1-7); PLAT.SUFFICIENCY VERY DECREASED; PLATELET COUNT 19 K/uL (156-360); TOXIC GRANULATION 2+
[2018-04-21 14:30] LABS: ERTH.SED.RATE 26 MM/HR (0-30)
[2018-04-21 14:34] LABS: C-REACTIVE PROTEIN 85.2 MG/L (0-10); HEMATOCRIT 20.3 % (36.0-46.0); IMM.RETIC FRACTION 3.5 % (3-19); MCH 29.1 PG (29.0-34.0); RBC DIS.WIDTH-CV 15.9 % (11.8-14.6); RED BLOOD COUNT 2.23 M/uL (3.80-5.20); RETIC HGB EQUIVALENT 33.4 (28-36)
[2018-04-21 14:35] LABS: HEMOGLOBIN 6.5 G/DL (11.9-15.5); RETICULOCYTE COUNT 0.3 % (0.5-1.8); WHITE BLOOD COUNT 0.2 K/uL (4.1-10.2)
[2018-04-21 14:51] LABS: IMM.PLATELET FRACTION 3.9 (1-7); PLAT.SUFFICIENCY VERY DECREASED
[2018-04-21 14:56] LABS: PLATELET COUNT 10 K/uL (156-360)
[2018-04-22] VITALS (11 sets, daily range): BP systolic 106–140; BP diastolic 56–69
[2018-04-22 07:21] LABS: HEMOGLOBIN 8.1 G/DL (11.9-15.5); MCHC 32.4 G/DL (30.0-36.0); MCV 89.6 FL (83-99); RBC DIS.WIDTH-CV 15.9 % (11.8-14.6)
[2018-04-22 07:29] LABS: RED BLOOD COUNT 2.79 M/uL (3.80-5.20); WHITE BLOOD COUNT 0.7 K/uL (4.1-10.2)
[2018-04-22 07:32] LABS: CHLORIDE 110 MEQ/L (99-109); CREATININE 0.6 MG/DL (0.6-1.3); GFR ESTIMATE (CALCULATED) > 59 mL/min/; GLUCOSE 90 mg/dL (70-99); POTASSIUM 3.8 MEQ/L (3.7-5.4); SODIUM 142 MEQ/L (136-147); UREA NITROGEN (BUN) 9 mg/dL (9-23)
[2018-04-22 07:45] LABS: ABS NEUTROPHIL COUNT 0.4; ANISOCYTOSIS 2+; ATYPICAL LYMPHOCYTE 6.8 %; BAND NEUTROPHILS 2.9 % (0-8.0); EOSINOPHIL ABS CT 0; IMM.PLATELET FRACTION 2.9 (1-7); LYMPHOCYTES 22.3 % (15.0-45.0); MICROCYTOSIS 1+; MONOCYTES 12.6 % (0-9.0); PLAT.SUFFICIENCY VERY DECREASED; SEG.NEUTROPHILS 52.4 % (46.0-76.0); TOX.VACUOLIZATION 2+; TOXIC GRANULATION 3+
[2018-04-22 07:50] LABS: PLATELET COUNT 14 K/uL (156-360)
[2018-04-22 20:27] LABS: HEMATOCRIT 25.8 % (36.0-46.0); HEMOGLOBIN 8.5 G/DL (11.9-15.5); MCH 29.1 PG (29.0-34.0); MCHC 32.9 G/DL (30.0-36.0); MCV 88.4 FL (83-99); RBC DIS.WIDTH-CV 15.8 % (11.8-14.6); RBC DIS.WIDTH-SD 51.4 % (39-53); RED BLOOD COUNT 2.92 M/uL (3.80-5.20)
[2018-04-22 20:30] LABS: WHITE BLOOD COUNT 0.8 K/uL (4.1-10.2)
[2018-04-22 20:44] LABS: IMM.PLATELET FRACTION 1.6 (1-7); PLAT.SUFFICIENCY VERY DECREASED
[2018-04-22 20:46] LABS: PLATELET COUNT 17 K/uL (156-360)
[2018-04-23 00:50] VITALS: BP 135/64
[2018-04-23 04:01] VITALS: BP 107/53
[2018-04-23 06:37] LABS: HEMATOCRIT 24.9 % (36.0-46.0); HEMOGLOBIN 8.1 G/DL (11.9-15.5); MCHC 32.5 G/DL (30.0-36.0); MCV 89.2 FL (83-99); RBC DIS.WIDTH-CV 15.6 % (11.8-14.6); RBC DIS.WIDTH-SD 51.4 % (39-53); RED BLOOD COUNT 2.79 M/uL (3.80-5.20)
[2018-04-23 06:43] LABS: CHLORIDE 111 MEQ/L (99-109); CREATININE 0.7 MG/DL (0.6-1.3); GFR ESTIMATE (CALCULATED) > 59 mL/min/; GLUCOSE 124 mg/dL (70-99); POTASSIUM 3.4 MEQ/L (3.7-5.4); SODIUM 142 MEQ/L (136-147); UREA NITROGEN (BUN) 9 mg/dL (9-23)
[2018-04-23 06:53] LABS: WHITE BLOOD COUNT 0.7 K/uL (4.1-10.2)
[2018-04-23 07:03] LABS: ABS NEUTROPHIL COUNT 0.5; ANISOCYTOSIS 1+; ATYPICAL LYMPHOCYTE 0.9 %; BASOPHILS 4.5 %; EOSINOPHIL ABS CT 0; EOSINOPHILS 1.8 % (0-5.0); IMM.PLATELET FRACTION 1.9 (1-7); LYMPHOCYTES 10.7 % (15.0-45.0); METAMYELOCYTES 0.9 %; MICROCYTOSIS 1+; MONOCYTES 6.2 % (0-9.0); MYELOCYTES 0.9 %; OVALOCYTES 1+; PLAT.SUFFICIENCY VERY DECREASED; TEAR DROP CELLS 1+
[2018-04-23 07:05] LABS: PLATELET COUNT 14 K/uL (156-360); SEG.NEUTROPHILS 74.1 % (46.0-76.0); TOXIC GRANULATION 3+
[2018-04-23 07:28] VITALS: BP 104/58
[2018-04-23] MEDS ORDERED: CIPRO500 MG PO (11:06)
[2018-04-23] MEDS ORDERED: AUGMENTIN875 MG PO (11:06)
== END 2018-04-23 14:40 | disposition home or self-care (01) | DRG 842 ==
LOC: EME 22:33 → 5EAST 04-21 03:59 → EDOF 04-21 03:59 → ENRESERV 04-21 04:01 → 5EAST 04-21 05:11
PROVIDERS: Hospitalist; Internal Medicine
PROC: 30233N1 Transfusion of Nonautologous Red Blood Cells into Peripheral Vein, Percutaneous Approach (ICD-10-PCS; principal; 2018-04-21)
PROC: 30253R1 (ICD-10-PCS; 2018-04-22)
DX: C86.5 Angioimmunoblastic T-cell lymphoma (principal); D64.81 Anemia due to antineoplastic chemotherapy; D70.1 Agranulocytosis secondary to cancer chemotherapy; D69.6 Thrombocytopenia, unspecified; T45.1X5A Adverse effect of antineoplastic and immunosuppressive drugs, initial encounter; R50.81 Fever presenting with conditions classified elsewhere; E11.9 Type 2 diabetes mellitus without complications; E78.5 Hyperlipidemia, unspecified; F17.210 Nicotine dependence, cigarettes, uncomplicated; G47.00 Insomnia, unspecified; I10 Essential (primary) hypertension; Z79.84 Long term (current) use of oral hypoglycemic drugs; Z90.49 Acquired absence of other specified parts of digestive tract; Z90.710 Acquired absence of both cervix and uterus
CPT/HCPCS: 36415; 71046; 80048; 80053; 80162; 80202; 81003; 82948; 83010 90; 83605; 83615; 85009; 85025; 85027; 85046; 85651; 86140; 86850; 86900; 86901; 86905; 86920; 87040; 99281; 99285; J0692; J1815; J3370; J7030; J7120; J7512; P9016; P9035

== ENCOUNTER 2018-04-30 23:55 | Inpatient (IN) | payer BC ==
[~2018-04-30] VITALS: Ht 172.7 cm; Wt 102.5 kg
[~2018-04-30 23:55] MED LIST changes: +AUGMENTIN875 MG PO; +CLARITIN,ALAVAR10 MG PO; +LEVAQUIN500 MG PO; +LOPERAMIDE2 MG PO; +NEULASTA6 MG/0.6 M SC
[2018-05-01 07:20] VITALS: BP 142/69
[2018-05-01 10:32] LABS: HEMATOCRIT 23.6 % (36.0-46.0); HEMOGLOBIN 7.9 G/DL (11.9-15.5); MCH 29.6 PG (29.0-34.0); MCHC 33.5 G/DL (30.0-36.0); MCV 88.4 FL (83-99); PLATELET COUNT 104 K/uL (156-360); RBC DIS.WIDTH-CV 15.9 % (11.8-14.6); RBC DIS.WIDTH-SD 50.4 % (39-53); RED BLOOD COUNT 2.67 M/uL (3.80-5.20); WHITE BLOOD COUNT 2.6 K/uL (4.1-10.2)
[2018-05-01 10:40] VITALS: BP 143/72
[2018-05-01 10:58] LABS: CHLORIDE 109 MEQ/L (99-109); CREATININE 0.7 MG/DL (0.6-1.3); GFR ESTIMATE (CALCULATED) > 59 mL/min/; GLUCOSE 157 mg/dL (70-99); POTASSIUM 3.7 MEQ/L (3.7-5.4); SODIUM 139 MEQ/L (136-147); UREA NITROGEN (BUN) 18 mg/dL (9-23)
[2018-05-01 15:50] VITALS: BP 140/76
[2018-05-01 20:09] VITALS: BP 136/68
[2018-05-01 23:56] VITALS: BP 146/79
[2018-05-02] VITALS (13 sets, daily range): BP systolic 136–169; BP diastolic 71–88
[2018-05-02 07:24] LABS: HEMATOCRIT 23.4 % (36.0-46.0); HEMOGLOBIN 7.7 G/DL (11.9-15.5); MCH 29.6 PG (29.0-34.0); MCHC 32.9 G/DL (30.0-36.0); PLATELET COUNT 113 K/uL (156-360); RBC DIS.WIDTH-CV 16.3 % (11.8-14.6); WHITE BLOOD COUNT 2.2 K/uL (4.1-10.2)
[2018-05-02 08:30] LABS: CHLORIDE 112 MEQ/L (99-109); CREATININE 0.7 MG/DL (0.6-1.3); GFR ESTIMATE (CALCULATED) > 59 mL/min/; GLUCOSE 145 mg/dL (70-99); POTASSIUM 4.3 MEQ/L (3.7-5.4); SODIUM 141 MEQ/L (136-147); UREA NITROGEN (BUN) 19 mg/dL (9-23)
[2018-05-03 00:14] VITALS: BP 141/76
[2018-05-03 06:12] LABS: HEMATOCRIT 28.8 % (36.0-46.0); HEMOGLOBIN 9.3 G/DL (11.9-15.5); MCH 28.6 PG (29.0-34.0); MCHC 32.3 G/DL (30.0-36.0); MCV 88.6 FL (83-99); PLATELET COUNT 143 K/uL (156-360); RBC DIS.WIDTH-CV 16.5 % (11.8-14.6); RBC DIS.WIDTH-SD 53.4 % (39-53); WHITE BLOOD COUNT 2.9 K/uL (4.1-10.2)
[2018-05-03 06:26] LABS: RED BLOOD COUNT 3.25 M/uL (3.80-5.20)
[2018-05-03 06:42] LABS: CHLORIDE 115 MEQ/L (99-109); CREATININE 0.6 MG/DL (0.6-1.3); GFR ESTIMATE (CALCULATED) > 59 mL/min/; POTASSIUM 4.2 MEQ/L (3.7-5.4); SODIUM 141 MEQ/L (136-147); UREA NITROGEN (BUN) 18 mg/dL (9-23)
[2018-05-03 06:43] LABS: GLUCOSE 81 mg/dL (70-99)
[2018-05-03 07:40] VITALS: BP 173/81
[2018-05-03] MEDS ORDERED: DECADRON4 M1 PO (11:34)
[2018-05-03] MEDS ORDERED: LEVAQUIN500 MG PO (11:37)
== END 2018-05-03 12:37 | disposition home or self-care (01) | DRG 847 ==
LOC: ENRESERV 23:55 → 5EAST 05-01 06:52
PROVIDERS: Internal Medicine Medical Oncology; Physician Assistant
PROC: 3E03305 Introduction of Other Antineoplastic into Peripheral Vein, Percutaneous Approach (ICD-10-PCS; principal; 2018-05-01)
PROC: 30233N1 Transfusion of Nonautologous Red Blood Cells into Peripheral Vein, Percutaneous Approach (ICD-10-PCS; 2018-05-02)
DX: Z51.11 Encounter for antineoplastic chemotherapy (principal); C86.5 Angioimmunoblastic T-cell lymphoma; D61.818 Other pancytopenia; I10 Essential (primary) hypertension; E78.5 Hyperlipidemia, unspecified; E11.9 Type 2 diabetes mellitus without complications; Z86.718 Personal history of other venous thrombosis and embolism
CPT/HCPCS: 36415; 36430; 80048; 80053; 82948; 85025; 85027; 86850; 86900; 86901; 86920; 86999; J1100; J1815; J2405; J7030; J7040; J7050; J9045; J9181; J9208; J9209; P9016